=== PATIENT | female | born 1940 | race American Indian/Alaskan Native ===

== ENCOUNTER 2017-09-17 13:36 | Day surgery (SDC) | payer OTHER, MEDICARE, SELFPAY ==
--- NOTE | 2017-09-17 | PATH_ITS ---
[facility] Accession Number: [id number] . 01 Material submitted: . SIGMOID POLYP AT 20 CM . 02 Diagnosis: Sigmoid Colon At 20 CM, Polyp, Biopsy: Hyperplastic polyp. [facility]/09/18/2017 . 02 Electronically signed: . Yanni Fontanez MD, Pathologist NPI- [id number] . 01 Gross description: . Received one formalin-filled container, labeled with the patient's name, labeled sigmoid polyp at 20 cm. The specimen consists of a 0.2 cm portion of tissue, entirely submitted in one cassette. ([id number]) /FRR . 02 Pathologist provided ICD-10: K63.5 . 02 CPT . 707394 Performed at: 01 [facility] [address] [id number] MD Hunter Hampton MD Phone: [phone] Performed at: 02 [facility] [address] [place], [place] [id number] MD nAders Curtis MD Phone: [phone]
[2017-09-17 13:57] VITALS: BMI 29.8
[2017-09-17] MEDS: SODIUM CHLORIDE 0.9% 1,000 ML 200 ML IV (14:14)
[2017-09-17 14:16] VITALS: BP 156/75; PULSE 105; RESP 16; TEMP 36.9; O2SAT 97
--- NOTE | 2017-09-17 14:28 | PM.HP.1 ---
History of Present Illness Date Patient Seen: 09/17/17 Time Patient Seen: 14:29 Chief complaint: 03160 COLONOSCOPY Narrative: 76-year-old female who presents for colorectal screening. She has a personal history colon polyps. Last endoscopy was 5 or 6 years ago. She is currently having no gastrointestinal symptoms including nausea, vomiting, abdominal pain, unexplained weight loss, change in bowel habits, diarrhea, constipation, melena, hematochezia, or bright red blood per rectum. 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 Family & Social History Social History: Nonsmoker Meds Home Medications Medication Instructions Recorded Confirmed Type ibuprofen 200 mg PO Q6HR PRN #0 09/18/16 09/17/17 History multivitamin [Multiple Vitamins] 1 tab PO QDAY #0 09/18/16 09/17/17 History Allergies Allergy/AdvReac Type Severity Reaction Status Date / Time Penicillins [PENICILLINS] Allergy Unknown Rash Verified 09/17/17 13:55 Review of Systems Review of Systems All systems reviewed & are unremarkable except as noted in HPI and below Exam Vital Signs (past 8 hours): - 09/17/17 14:16 Temperature 98.4 F Pulse Rate 105 H Respiratory Rate 16 Blood Pressure 156/75 H Pulse Oximetry 97 Oxygen Delivery Method Room Air Narrative Exam Narrative: Elderly female lying comfortably in the bed in no acute distress. Alert oriented x3 Neck is supple Chest clear to auscultation bilaterally. Regular rate rhythm. Grade 2 systolic ejection murmur Abdomen soft, nondistended, nontender, no masses Extremities show no clubbing or cyanosis Objective Labs Labs: No recent laboratory or radiographic studies for review Assessment & Plan (1) Personal history of colonic polyps: Current visit: Yes Status: Acute Plan: Assessment/Plan Narrative: 76-year-old female with personal history of colon polyps. She requires colorectal surveillance for such since it has been at least 5 years since her last exam. Colonoscopy is currently recommended. Technical details of the procedure were discussed at length. Risks, benefits, alternatives were explained. Risks including but not limited to sedation, aspiration, bleeding, pain, missed lesion, incomplete examination, need for further radiographic studies, colonic perforation, need for major abdominal surgery, and all attendant risks of major surgery were discussed in detail. All questions were answered to her satisfaction, and she voiced understanding. Consent was placed on the chart. We will proceed as above.
--- NOTE | 2017-09-17 14:34 | PM.PREOP ---
Pre-operative Note Interval Note Pre-op Check: History & Physical Reviewed by Physician, Exam Performed and History & Physical exam performed today H&P completed within 30 days and has changed as indicated here:: Patient seen and examined today. History physical examination documented and on the chart. Proceed with colonoscopy as planned today for personal history colon polyps requiring surveillance. Consent placed on the chart. ASA Class (for procedural sedation): I
[2017-09-17] MEDS: MIDAZOLAM 5 MG/5 ML VIAL IV (14:52)
[2017-09-17] MEDS: fentaNYL 250 MCG/5 ML INJ IV (14:53)
--- NOTE | 2017-09-17 15:03 | PM.OP.ENDO ---
Operative Date/Time/Diagnoses - Date of procedure: 09/17/17 Time of procedure: 15:03 Pre-op diagnosis: Personal history of colon polyps Post-op diagnosis: other (Sigmoid polyp but otherwise normal colon and rectum) Procedure & Clinicians Study performed: 1. Sedation per surgeon 2. Colonoscopy with cold forceps polypectomy Same procedure as scheduled: Yes Indications: 76-year-old female with personal history of colon polyps. It has been at least 5 years since her last colonoscopy. She require surveillance for her history of polyps. Colonoscopy is once again recommended. Surgeon: Spenser Joshi Procedure Notes SCOAP/Timeout: Yes Procedure in detail: After obtaining informed consent, the patient was brought to the GI suite and placed in the left lateral decubitus position on the examination table. After placement of appropriate monitors, the patient was given incremental doses of Versed and Fentanyl until an appropriate level of sedation was achieved. A time out was held per SCOAP protocol. A digital rectal examination was performed and did not reveal any masses or obstructing lesions. The colonoscope was gently passed into the patient's anus and the entire colon navigated to the level of the cecum with minimal difficulty. Once in the cecum, the scope was withdrawn being sure to go before and beyond all mucosal folds and prominences and get an excellent examination. The findings are noted above. At the level of the rectal vault, the scope was retroflexed and the internal anal canal was examined. The scope was straightened and air aspirated from the colon. The instrument was removed from the patient's body and the procedure was concluded. The patient was allowed to awaken from sedation without difficulty and taken to the post-anesthesia care unit in good condition. Scope withdrawal time: 9:39 min Sedation minutes: 23 Findings: polyp (Sigmoid colon polyp at 20 cm) Specimen(s): none sent (Sigmoid polyp) Complications: none Recommendations: High fiber diet, Will call with biopsy results and Other recommendation (No further colonoscopy indicated pending biopsy results) Plan for aftercare: 1. Discharge to home Follow up: as needed Disposition: PACU
[2017-09-17 16:21] VITALS: BP 136/68; PULSE 104; RESP 16; TEMP 36.8; O2SAT 100
--- NOTE | 2017-09-17 16:28 | SUR.PHASEII ---
pt awake to preop .. hungry and thirsty...vss and within preop of levels.. no nausea abdomen soft.. family at bedside.. pt up with assistance and walked and dressed safely.. to caar in [place]
== END 2017-09-17 15:30 | disposition home or self-care (01) ==
PROVIDERS: Family Provider Family Medicine; PCP Family Medicine; Visit Provider Surgery
PROC: 0DJD8ZZ Inspection of Lower Intestinal Tract, Via Natural or Artificial Opening Endoscopic (ICD-10-PCS; CPT 45378; principal; 2017-09-17 15:00)
DX: Z86.010 Personal history of colon polyps (principal); D12.5 Benign neoplasm of sigmoid colon
CPT/HCPCS: 45380; J2250; J3010

== ENCOUNTER 2018-04-07 19:30 | Inpatient (IN) | payer MEDICARE, OTHER, SELFPAY ==
[2018-04-07] VITALS (10 sets, daily range): BP systolic 93–165; BP diastolic 36–105; PULSE 107–134; RESP 23–33; TEMP 36.9; O2SAT 92–98
--- NOTE | 2018-04-07 19:55 | ED.URI ---
HPI - URI/Sore Throat General Chief Complaint: Upper Respiratory Symptoms Stated Complaint: FEVER, COUGH, SHORT OF BREATH Time Seen by Provider: 04/07/18 19:46 Source: patient and family Mode of arrival: ambulatory Limitations: no limitations History of Present Illness HPI Narrative: Patient is 77-year-old female who presents with difficulty breathing. She says that she has had a productive cough and shortness of breath for about the last 2 days. She is noted to be tachycardic. She is a smoker. She denies any known history of COPD in fact all she takes is an aspirin daily. She denies any fever shakes chills. Isi family noticed that her breathing was labored. MD Complaint: fever and cough Onset (ago): day(s) (2) Duration: constant Related Data Home Medications Medication Instructions Recorded Confirmed aspirin [Aspirin Low Dose] 81 mg PO DAILY 04/07/18 04/07/18 Allergies Allergy/AdvReac Type Severity Reaction Status Date / Time Penicillins [PENICILLINS] Allergy Unknown Rash Verified 09/17/17 13:55 Review of Systems Review of Systems ROS Unobtainable: All systems reviewed & are unremarkable except as noted in HPI and below Constitutional Denies chills, Denies fever(s), Denies lethargy and Denies weakness Eyes Denies change in vision, Denies eye discharge, Denies irritation and Denies loss of vision ENT Ears, Nose, Mouth, and Throat: Denies dry mouth and Reports hearing loss (chronic) Cardiovascular Denies chest pain, Denies syncope, Reports rapid heart rate, Denies pedal edema and Reports dyspnea on exertion Respiratory Reports change in phlegm color and Reports dyspnea on exertion Gastrointestinal Gastrointestinal: Denies abdominal pain, Denies change in bowel habits, Denies diarrhea, Denies nausea and Denies vomiting Genitourinary Denies hematuria, Denies flank pain, Denies urinary incontinence and Denies urinary urgency Musculoskeletal Denies back pain, Denies muscle weakness, Denies numbness and Denies tingling Integumentary/Breasts Denies pruritus, Denies erythema, Denies rash and Denies wounds Neurologic Denies syncope, Denies loss of vision, Denies numbness, Denies tingling and Denies weakness [facility] Medical History Peripheral nerve facial nerve paralysis (Acute) Personal history of colonic polyps (Acute) Psoriasis (Acute) Urinary incontinence (Acute) Surgical History History of bilateral tubal ligation (Acute) History of colonoscopy (Acute) Social History Smoking Status: Current every day smoker Exam Initial Vital Signs Initial Vital Signs: Vital Signs Temperature 98.5 F 04/07/18 19:47 Pulse Rate 134 H 04/07/18 19:47 Respiratory Rate 28 H 04/07/18 19:47 Blood Pressure 165/87 H 04/07/18 19:47 Pulse Oximetry 95 04/07/18 19:47 Const General: cooperative and comfortable Orientation: alert, awake and oriented x3 HENMT Ears: hearing grossly abnormal bilaterally and hearing grossly impaired Face and sinus: face asymmetric (Right-sided facial droop-nerve damage from ear operation) Eyes General: appearance normal, both eyes and all related structures Chest Chest: normal inspection of the chest Resp Effort & Inspection: able to speak in complete sentences Auscultation: no rales and wheezes scattered wheezes Cardio Rate: tachycardic Rhythm: regular rhythm Heart Sounds: S1 normal and S2 normal GI Inspection: non-distended Palpation: soft, no hepatosplenomegaly, No guarding, No pulsatile mass and No tender Auscultation: normal bowel sounds Skin General: no rashes or lesions noted, No jaundice and No petechiae Neuro General: alert, oriented x3, gait normal and no focal motor deficits Speech: speech normal Extrem General: normal to inspection, full ROM, capillary refill normal and no pedal edema Course Orders Ordered: ED Orders 04/07/18 19:56 Consult to Respiratory Therapy Evaluate & Treat XR chest 1V Stat 04/07/18 20:14 B Type Natriuretic Peptide Stat Complete Blood Count AUTO DIFF Stat Comprehensive Metabolic Panel Stat Lactate (Lactic Acid) Stat Magnesium Stat Partial Thromboplastin Time Stat Procalcitonin Stat Prothrombin Time INR Stat Troponin & CK Cardiac Panel Stat 04/07/18 20:32 Blood Culture Stat 04/07/18 20:59 EKG-12 Lead Stat 04/07/18 21:16 CT angio chest PE protocol Stat 04/08/18 06:00 Consult to Discharge Planning Routine Acetaminophen (Tylenol) 650 mg PO Q6HR PRN PRN Reason: As Needed for Fever/Mild Pain Albuterol/Ipratropium (Duoneb) 3 ml INH RTQ6HR ROBERTO Sodium Chloride (Normal Saline 0.9%) 1,000 mls @ 150 mls/hr IV CONT ROBERTO Last Infusion: 04/07/18 21:00 Dose: 150 mls/hr Admin: 04/07/18 20:14 Dose: 150 mls/hr Discontinued Medications Albuterol (Ventolin) 2.5 mg INH NOW ONE Stop: 04/07/18 20:35 Last Admin: 04/07/18 20:59 Dose: 2.5 mg Albuterol/Ipratropium (Duoneb) 3 ml INH NOW ONE Stop: 04/07/18 19:56 Last Admin: 04/07/18 19:59 Dose: 3 ml Furosemide (Lasix) 40 mg IV NOW ONE Stop: 04/07/18 21:00 Last Admin: 04/07/18 21:03 Dose: 40 mg Methylprednisolone (Solu-Medrol 125 Mg Vial) 125 mg IV NOW ONE Stop: 04/07/18 19:56 Last Admin: 04/07/18 20:14 Dose: 125 mg Vital Signs - 8 hr 04/07/18 19:47 04/07/18 19:59 04/07/18 20:00 Temperature 98.5 F Pulse Rate 134 H 123 H 124 H Respiratory Rate 28 H 24 23 Blood Pressure 165/87 H Blood Pressure [Left Arm] 161/81 H Pulse Oximetry 95 96 04/07/18 20:30 04/07/18 20:59 04/07/18 21:00 Temperature Pulse Rate 130 H 130 H 132 H Respiratory Rate 25 H 24 27 H Blood Pressure Blood Pressure [Left Arm] 156/65 H 145/105 H Pulse Oximetry 93 92 93 04/07/18 22:10 04/07/18 22:30 04/07/18 23:34 Temperature Pulse Rate 126 H 125 H 116 H Respiratory Rate 26 H 33 H 27 H Blood Pressure Blood Pressure [Left Arm] 154/86 H 117/36 L 93/69 Pulse Oximetry 97 98 04/07/18 23:39 04/08/18 00:00 04/08/18 00:30 Temperature Pulse Rate 107 H 104 H 114 H Respiratory Rate 26 H 24 30 H Blood Pressure Blood Pressure [Left Arm] 137/61 143/62 H 131/63 Pulse Oximetry 96 99 95 04/08/18 01:00 Temperature Pulse Rate 113 H Respiratory Rate 25 H Blood Pressure Blood Pressure [Left Arm] 142/69 H Pulse Oximetry 95 MDM - URI/Sore Throat Lab Data Attestation: I reviewed the patient's lab results. Result diagrams: 04/07/18 20:14 04/07/18 20:14 Lab Results 04/07/18 04/07/18 04/07/18 Range/Units 20:14 20:14 20:14 WBC 6.4 (4.5-11.0) X10^3/uL RBC 3.94 L (4.0-5.2) X10^6/uL Hgb 11.4 L (12.0-16.0) g/dL Hct 35.2 L (36-46) % MCV 89.3 (80-100) fL MCH 29.0 (26-34) PG MCHC 32.5 (30-36) % RDW 14.7 (11.6-14.8) % Plt Count 173 (150-400) X10^3/uL Neut % (Auto) 61.6 (50-75) % Lymph % (Auto) 24.8 L (25-40) % [place] % (Auto) 12.2 (3-14) % Eos % (Auto) 0.7 L (2-4) % Baso % (Auto) 0.7 (0-2) % Neut # (Auto) 4000 (2378-0174) /uL Lymph # (Auto) 1600 (6525-5127) /uL [place] # (Auto) 800 (0-900) /uL Eos # (Auto) 0 (0-450) /uL Baso # (Auto) 0 (0-100) /uL PT 13.0 H (10.1-12.7) SECONDS INR 1.1 (0.9-1.3) APTT 25 L (26.4-36.2) SECONDS Sodium 138 (137-145) mmol/L Potassium 4.2 (3.4-5.1) mmol/L Chloride 103 (98-107) mmol/L Carbon Dioxide 24 (22-32) mmol/L BUN 13 (7-17) mg/dL Creatinine 0.40 L (0.52-1.04) mg/dL Estimated GFR > 60.0 (>60) mL/min BUN/Creatinine Ratio 32.5 H (6-22) Glucose 104 (80-110) mg/dL Lactate (0.7-2.1) mmol/L Calcium 9.2 (8.4-10.2) mg/dL Magnesium 1.6 (1.6-2.3) mg/dL Total Bilirubin 1.3 (0.2-1.3) mg/dL AST 39 H (14-36) IU/L ALT 41 (9-52) IU/L Alkaline Phosphatase 98 (38-126) U/L Total Creatine Kinase 516 H (30-135) U/L CK-MB (CK-2) 1.84 (<2.37) ng/mL CK-MB (CK-2) Rel Index 0.4 L (1.5-5.0) % Troponin I 0.060 H (0.01-0.034) ng/mL B-Natriuretic Peptide 1080 H (<100) Total Protein 6.9 (6.3-8.2) g/dL Albumin 4.1 (3.5-5.0) g/dL Globulin 2.8 (1.7-4.1) g/dL Albumin/Globulin Ratio 1.5 (1.0-2.8) Procalcitonin (<0.5) ng/mL 04/07/18 04/07/18 Range/Units 20:14 20:14 WBC (4.5-11.0) X10^3/uL RBC (4.0-5.2) X10^6/uL Hgb (12.0-16.0) g/dL Hct (36-46) % MCV (80-100) fL MCH (26-34) PG MCHC (30-36) % RDW (11.6-14.8) % Plt Count (150-400) X10^3/uL Neut % (Auto) (50-75) % Lymph % (Auto) (25-40) % [place] % (Auto) (3-14) % Eos % (Auto) (2-4) % Baso % (Auto) (0-2) % Neut # (Auto) (4658-6304) /uL Lymph # (Auto) (4304-4111) /uL [place] # (Auto) (0-900) /uL Eos # (Auto) (0-450) /uL Baso # (Auto) (0-100) /uL PT (10.1-12.7) SECONDS INR (0.9-1.3) APTT (26.4-36.2) SECONDS Sodium (137-145) mmol/L Potassium (3.4-5.1) mmol/L Chloride (98-107) mmol/L Carbon Dioxide (22-32) mmol/L BUN (7-17) mg/dL Creatinine (0.52-1.04) mg/dL Estimated GFR (>60) mL/min BUN/Creatinine Ratio (6-22) Glucose (80-110) mg/dL Lactate 1.1 (0.7-2.1) mmol/L Calcium (8.4-10.2) mg/dL Magnesium (1.6-2.3) mg/dL Total Bilirubin (0.2-1.3) mg/dL AST (14-36) IU/L ALT (9-52) IU/L Alkaline Phosphatase (38-126) U/L Total Creatine Kinase (30-135) U/L CK-MB (CK-2) (<2.37) ng/mL CK-MB (CK-2) Rel Index (1.5-5.0) % Troponin I (0.01-0.034) ng/mL B-Natriuretic Peptide (<100) Total Protein (6.3-8.2) g/dL Albumin (3.5-5.0) g/dL Globulin (1.7-4.1) g/dL Albumin/Globulin Ratio (1.0-2.8) Procalcitonin < 0.05 (<0.5) ng/mL Urine Dip Bedside Urine Glucose Negative Bedside Urine Bilirubin - Negative Bedside Urine Ketone - Negative Urine Specific [place] 1.015 Bedside Urine Occult Blood - Negative Bedside Urine pH 6.5 Bedside Urine Protein - Negative Bedside Urine Urobilinogen - Negative Bedside Urine Nitrite - Negative Bedside Urine Leukocytes - Negative Esterase Imaging Data CT PE: Radiologist's impression: PROCEDURE: CT ANGIO CHEST PE PROTOCOL INDICATIONS: short of breath tachycardic TECHNIQUE: After the administration of intravenous contrast, 2 mm thick sections acquired from the pulmonary apices to the posterior costophrenic angles. 3-dimensional maximum intensity projection (MIP) coronal and sagittal reformats were then acquired through the thorax. For radiation dose reduction, the following was used: automated exposure control, adjustment of mA and/or kV according to patient size. COMPARISON: [facility], CT, CT BRAIN WO CON, 10/07/2015, 17:32. FINDINGS: Image quality: Excellent. Pulmonary arteries: Pulmonary arteries are normal in size, and demonstrate no intraluminal filling defects to suggest central pulmonary embolism. Lungs and pleura: There is mild bilateral lower lobe atelectasis. No pleural effusions or pneumothorax. Central and peripheral airways are patent. There is a 1.5 cm diverticulum arising from the inferior left mainstem bronchus on axial image 28 of series 5. Mediastinum: There is left atrial enlargement. There is mild mediastinal lymphadenopathy as well as right hilar lymphadenopathy. There is moderate calcified and noncalcified plaque of the aorta and branch vessels. There is moderate calcified plaque of the coronary arteries. The aorta is nondilated. Bones and chest wall: No suspicious bony lesions. Ribs and thoracic spine appear intact throughout. There are moderate multilevel degenerative changes of the spine. Left thyroid lobe is larger than the right thyroid lobe. No axillary or supraclavicular adenopathy. Abdomen: There are multiple hypoattenuating foci within the liver, though some measure larger than 1 cm have attenuation characteristics consistent with hepatic cysts. Those that measures smaller than 1 cm are too small to fully characterize on this exam but likely represent additional hepatic cysts or hemangiomas. No intrahepatic hypoattenuating foci demonstrate arterial phase contrast-enhancement on this exam. There is 0.8 cm left renal cyst. There is 0.8 cm high attenuation focus in the gallbladder neck which may represent a gallstone or soft tissue mass. IMPRESSION: 1. No pulmonary artery intraluminal filling defects to suggest central pulmonary embolism. 2. Mild bibasilar atelectasis. 3. Mild right hilar and mediastinal lymphadenopathy, which is nonspecific and possibly reactive. 4. 0.8 cm high attenuation focus in the gallbladder neck may represent a noncalcified gallstone versus a soft tissue mass. Consider followup abdominal imaging if there is clinical concern. Dictated by: Marek Walters M.D. on 04/07/2018 at 22:35 Chest x-ray: Radiologist's impression: PROCEDURE: XR CHEST 1V INDICATIONS: short of breath TECHNIQUE: One view of the chest was acquired. COMPARISON: [facility], , CHEST 2 VIEW, 11/27/2015, 16:00. FINDINGS: Surgical changes and devices: Multiple monitor leads project over the chest. Lungs and pleura: No pleural effusions or pneumothorax. There are mild bibasilar pulmonary opacities most consistent with atelectasis. Mediastinum: The patient is rotated, resulting in exaggeration of the mediastinal and cardiac silhouettes. Within this context, the cardiac silhouette remains enlarged. Prominent air noted within the cervical esophagus/pharynx. Bones and chest wall: Mild multilevel degenerative changes of the spine. IMPRESSION: 1. Mild bibasilar pulmonary opacities most consistent with atelectasis. 2. Enlargement of the mediastinal and cardiac silhouettes, likely secondary to a combination of patient rotation and possible cardiomegaly/pericardial effusion. Attention on followup exams recommended. 3. Prominent air within the pharynx/cervical esophagus. Dictated by: Marek Walters M.D. on 04/07/2018 at 21:34 ECG Data Attestation: I personally reviewed and interpreted this ECG as follows: Prior ECG tracings: not available for review Interpretation: EKG 1.: Sinus tachycardia rate [address] changes no T-wave inversions EKG 2. Sinus tachycardia rate 138 similar to previous occasional pauses no PVCs MDM Narrative Medical decision making narrative: Patient given bronchodilators without much improvement. BNP is significantly elevated has no known history of CHF. She is persistently tachycardic with difficulty breathing. Will get CT to rule out PE. CT is negative. Patient and urinated number of times her breathing is much improved she is able to sleep. Heart rate also doing much better. Low blood pressures were recorded but found to be wrong size cuff on patient's arm. He has also been awake alert and oriented. Farhana, hospitalist updated on patient's symptoms test results. Accepts patient for admission. Discharge Plan Departure Patient Disposition: Admitted As Inpatient Clinical Impression: CHF (congestive heart failure), COPD (chronic obstructive pulmonary disease) Admit Date/Time: 04/07/18 23:02 Admit Provider: Rod Velasco
[2018-04-07] MEDS: ALBUTEROL/IPRATROPIUM 3 ML AMPUL INH (19:59)
[2018-04-07] MEDS: SODIUM CHLORIDE 0.9% 1,000 ML 150 ML IV (20:14)
[2018-04-07] MEDS: methylPREDNISolone 125 MG/2 ML VIAL IV (20:14)
[2018-04-07 20:33] LABS: Add Manual Diff / Slide Review NO; Basophils Absolute Auto 0 /uL (0-100); Basophils Percent Auto 0.7 % (0-2); Eosinophils Absolute Auto 0 /uL (0-450); Eosinophils Percent Auto 0.7 % (2-4); Hematocrit 35.2 % (36-46); Hemoglobin 11.4 g/dL (12.0-16.0); Lymphocytes Absolute Auto 1600 /uL (1100-4500); Lymphocytes Percent Auto 24.8 % (25-40); Mean Corpuscular HGB Conc 32.5 % (30-36); Mean Corpuscular Volume 89.3 fL (80-100); Monocytes Absolute Auto 800 /uL (0-900); Monocytes Percent Auto 12.2 % (3-14); Neutrophils Absolute Auto 4000 /uL (1500-7000); Neutrophils Percent Auto 61.6 % (50-75); Platelet Count 173 X10^3/uL (150-400); Red Blood Cell Count 3.94 X10^6/uL (4.0-5.2); Red Cell Distribution Width 14.7 % (11.6-14.8); White Blood Cell Count 6.4 X10^3/uL (4.5-11.0)
[2018-04-07 20:41] LABS: INR 1.1 (0.9-1.3)
[2018-04-07 20:43] LABS: PTT Partial Thromboplastin Tim 25 SECONDS (26.4-36.2)
[2018-04-07 20:46] LABS: Alanine Aminotransferase 41 IU/L (9-52); Albumin 4.1 g/dL (3.5-5.0); Albumin Globulin Ratio 1.5 (1.0-2.8); Alkaline Phosphatase 98 U/L (38-126); Aspartate Aminotransferase 39 IU/L (14-36); BUN Creatinine Ratio 32.5 (6-22); Bilirubin Total 1.3 mg/dL (0.2-1.3); Blood Urea Nitrogen 13 mg/dL (7-17); Calcium 9.2 mg/dL (8.4-10.2); Carbon Dioxide 24 mmol/L (22-32); Chloride 103 mmol/L (98-107); Creatine Kinase 516 U/L (30-135); Estimated Glomerular Filt Rate > 60.0 mL/min (>60); Globulin 2.8 g/dL (1.7-4.1); Glucose 104 mg/dL (80-110); HEMOLYSIS < 15 (0-50); Lactate (Lactic Acid) 1.1 mmol/L (0.7-2.1); Magnesium 1.6 mg/dL (1.6-2.3); Potassium 4.2 mmol/L (3.4-5.1); Sodium 138 mmol/L (137-145); Total Protein 6.9 g/dL (6.3-8.2)
--- NOTE | 2018-04-07 20:48 | PC.NURSE ---
Pt states SOB for past 2 days with productive cough. She is a smoker, denies history of COPD and takes a baby aspirin daily as only home med. Pt tachycardic 120's and does not have fever 98.6 upon arrival.
[2018-04-07 20:50] LABS: B Type Natriuretic Peptide 1080 (<100)
[2018-04-07] MEDS: ALBUTEROL 2.5 MG/3 ML NEB (ADULT) INH (20:59)
[2018-04-07 21:00] LABS: Procalcitonin < 0.05 ng/mL (<0.5)
[2018-04-07 21:01] LABS: CKMB % Relative Index 0.4 % (1.5-5.0); Creatine Kinase MB 1.84 ng/mL (<2.37)
[2018-04-07] MEDS: FUROSEMIDE 40 MG/4 ML VIAL IV (21:03)
--- NOTE | 2018-04-07 21:16 | DI.CT.S_ITS ---
PROCEDURE: CT ANGIO CHEST PE PROTOCOL INDICATIONS: short of breath tachycardic TECHNIQUE: After the administration of intravenous contrast, 2 mm thick sections acquired from the pulmonary apices to the posterior costophrenic angles. 3-dimensional maximum intensity projection (MIP) coronal and sagittal reformats were then acquired through the thorax. For radiation dose reduction, the following was used: automated exposure control, adjustment of mA and/or kV according to patient size. COMPARISON: [facility], CT, CT BRAIN WO CON, 10/07/2015, 17:32. FINDINGS: Image quality: Excellent. Pulmonary arteries: Pulmonary arteries are normal in size, and demonstrate no intraluminal filling defects to suggest central pulmonary embolism. Lungs and pleura: There is mild bilateral lower lobe atelectasis. No pleural effusions or pneumothorax. Central and peripheral airways are patent. There is a 1.5 cm diverticulum arising from the inferior left mainstem bronchus on axial image 28 of series 5. Mediastinum: There is left atrial enlargement. There is mild mediastinal lymphadenopathy as well as right hilar lymphadenopathy. There is moderate calcified and noncalcified plaque of the aorta and branch vessels. There is moderate calcified plaque of the coronary arteries. The aorta is nondilated. Bones and chest wall: No suspicious bony lesions. Ribs and thoracic spine appear intact throughout. There are moderate multilevel degenerative changes of the spine. Left thyroid lobe is larger than the right thyroid lobe. No axillary or supraclavicular adenopathy. Abdomen: There are multiple hypoattenuating foci within the liver, though some measure larger than 1 cm have attenuation characteristics consistent with hepatic cysts. Those that measures smaller than 1 cm are too small to fully characterize on this exam but likely represent additional hepatic cysts or hemangiomas. No intrahepatic hypoattenuating foci demonstrate arterial phase contrast-enhancement on this exam. There is 0.8 cm left renal cyst. There is 0.8 cm high attenuation focus in the gallbladder neck which may represent a gallstone or soft tissue mass. IMPRESSION: 1. No pulmonary artery intraluminal filling defects to suggest central pulmonary embolism. 2. Mild bibasilar atelectasis. 3. Mild right hilar and mediastinal lymphadenopathy, which is nonspecific and possibly reactive. 4. 0.8 cm high attenuation focus in the gallbladder neck may represent a noncalcified gallstone versus a soft tissue mass. Consider followup abdominal imaging if there is clinical concern. Dictated by: Marek Walters M.D. on 04/07/2018 at 22:35 Approved by: Marek Walters M.D. on 04/07/2018 at 22:54
[2018-04-08] VITALS (13 sets, daily range): BP systolic 117–148; BP diastolic 61–81; PULSE 104–128; RESP 16–30; TEMP 36.3–36.9; O2SAT 92–99; BMI 29.8
--- NOTE | 2018-04-08 | DI.US.S_ITS ---
PROCEDURE: US ABDOMEN COMPLETE INDICATIONS: RUQ pain, abnorma CT finding, concern for biliary abnormalit TECHNIQUE: Real-time scanning was performed of the abdominal and retroperitoneal organs, with image documentation. COMPARISON: None. FINDINGS: Liver: Liver is normal in size and homogeneous in echotexture. Multiple hepatic cysts are identified. Largest cyst is in the right of the liver and measures 4.9 x 4.5 cm. Largest cyst in the left lobe measures 1.8 cm in diameter. Gallbladder: The 6 mm and 8 mm nonmobile stones are noted in the gallbladder neck. The gallbladder wall is at the upper limits of normal in thickness measuring 3 mm. No pericholecystic fluid. No sonographic Chou's sign. Biliary ducts: Intrahepatic bile ducts are non-dilated. Extrahepatic bile duct caliber measures 6.0 mm. Normal is 6-7 mm or less in diameter, or 10 mm or less post-cholecystectomy. Pancreas: Visualized portions of the pancreas are sonographically normal. Tail of the pancreas is not visualized due to bowel gas and cannot be evaluated. Spleen: Spleen is normal in size and homogeneous in echotexture. Kidneys: Kidneys are normal in size and echotexture. Right kidney measures 10.1 cm long; left kidney measures 10.6 cm long. No hydronephrosis or nephrolithiasis. No solid masses. Aorta: Visualized aorta is normal in caliber at less than 3 cm. Atherosclerotic calcification is noted in the abdominal aorta. Iliacs: Proximal common iliac arteries are normal in caliber at less than 2.5 cm. IVC: Intrahepatic inferior vena cava is patent. Miscellaneous: No free abdominal fluid. IMPRESSION: 1. Cholelithiasis with gallstones lodged in the gallbladder neck and gallbladder wall at the upper limits of normal in thickness. Findings concerning for early cholecystitis. Please correlate with clinical data. 2. Hepatic cysts. Dictated by: Bhumi Brito MD, PhD on 04/08/2018 at 8:56 Approved by: Bhumi Brito MD, PhD on 04/08/2018 at 9:00
--- NOTE | 2018-04-08 01:57 | PM.HP.1 ---
History of Present Illness Date Patient Seen: 04/08/18 Time Patient Seen: 01:32 Chief complaint: FEVER, COUGH, SHORT OF BREATH Narrative: The patient is a 77-year-old female who presented to the ED on 04/07/2018 at 1947 out of concern for dyspnea. Symptoms initially noted 2 days ago, progressively worsening. Associated symptoms include chills, cough, orthopnea, chest discomfort, RUQ abdominal pain, and decrease in urine output. Symptoms are worsened with exertion and relieved with rest. Denies recent acute illness, falls, unilateral lower extremity pain or edema, palpitations, weakness, fatigue, or signs of blood loss. [place] Recently in contact with multiple people with URI symptoms. No prior known history of cardiac, pulmonary, renal disease. No history of PE or DVT. ED Work-Up / Initial Presentation VS: T 98.5*F BP 165/87 HR 134 RR 28 SpO2 95% EKG: ST w/ occasional supraventricular premature complexes, ST/T changes, moderate ST depression CXR: - Mild bibasilar pulmonary opacities most consistent with atelectasis. - Enlargement of the mediastinal and cardiac silhouettes, likely secondary to a combination of patient rotation and possible cardiomegaly/pericardial effusion. Attention on followup exams recommended. - Prominent air within the pharynx/cervical esophagus. CTA Chest No PE. Mild bibasilar atelectasis. Mild right hilar and mediastinal lymphadenopathy, which is nonspecific and possibly reactive. A 0.8 cm high attenuation focus in the gallbladder neck may represent a non-calcified gallstone versus a soft tissue mass. Consider followup abdominal imaging if there is clinical concern. Labs: WBC 6.4 Hgb 11.4 Plt 173 NA 138 K 4.2 Cl 103 Ca 9.2 Mg 1.6 CO2 24 Glu 104 sCr 0.40 GFR > 60 BUN:Cr 32.5 T. 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) PSH: b/l tubal ligation, colonoscopy, left ear surgery FHx: mother / father - no known medical history; sister (breast cancer), sister (cervical cancer), son (end stage heart failure) Patient History Medical History Peripheral nerve facial nerve paralysis (Acute) Personal history of colonic polyps (Acute) Psoriasis (Acute) Urinary incontinence (Acute) Surgical History History of bilateral tubal ligation (Acute) History of colonoscopy (Acute) Family & Social History Family History: Reviewed 04/08/18 by JESSY Agosto Safety & Behavioral: Feels Safe in Current Yes Environment Tobacco & Substance use: Smoking Status Current every day smoker, 1ppd at least for 20 yrs alcohol intake frequency other Substance Use Type does not use Meds Home Medications Medication Instructions Recorded Confirmed Type aspirin [Aspirin Low Dose] 81 mg PO DAILY 04/07/18 04/07/18 History Allergies Allergy/AdvReac Type Severity Reaction Status Date / Time Penicillins [PENICILLINS] Allergy Unknown Rash Verified 09/17/17 13:55 Review of Systems Review of Systems All systems reviewed & are unremarkable except as noted in HPI and below Exam Vital Signs (past 8 hours): - 04/07/18 19:47 04/07/18 19:59 04/07/18 20:00 Temperature 98.5 F Pulse Rate 134 H 123 H 124 H Respiratory Rate 28 H 24 23 Blood Pressure 165/87 H Blood Pressure [Left Arm] 161/81 H Pulse Oximetry 95 96 04/07/18 20:30 04/07/18 20:59 04/07/18 21:00 Temperature Pulse Rate 130 H 130 H 132 H Respiratory Rate 25 H 24 27 H Blood Pressure Blood Pressure [Left Arm] 156/65 H 145/105 H Pulse Oximetry 93 92 93 04/07/18 22:10 04/07/18 22:30 04/07/18 23:34 Temperature Pulse Rate 126 H 125 H 116 H Respiratory Rate 26 H 33 H 27 H Blood Pressure Blood Pressure [Left Arm] 154/86 H 117/36 L 93/69 Pulse Oximetry 97 98 04/07/18 23:39 04/08/18 00:00 04/08/18 00:30 Temperature Pulse Rate 107 H 104 H 114 H Respiratory Rate 26 H 24 30 H Blood Pressure Blood Pressure [Left Arm] 137/61 143/62 H 131/63 Pulse Oximetry 96 99 95 04/08/18 01:00 Temperature Pulse Rate 113 H Respiratory Rate 25 H Blood Pressure Blood Pressure [Left Arm] 142/69 H Pulse Oximetry 95 Oxygen Delivery Method Room Air Narrative Exam Narrative: Constitutional: NAD, seen in ED Neurologic: AOx 2-3, forgetful, left facial palsy Head: NC, AT Eyes: PERRL, EOMI, no scleral icterus Ears: external ears normal, very hard fo hearing Nose: external nose normal, no rhinorrhea or epistaxis Throat: MMM, oropharynx w/o exudate, missing teeth Neck: no masses, lymphadenopathy, or JVD Chest / Respiratory: right lobe diminished, left crackles, no dyspnea or tachypnea, unlabored respiratory effort Heart / CV: S1S2, S3; ectopic beats noted Abdomen / GI: soft, RUQ tenderness, no distention, hypoactive BS : suprapubic tenderness, R-CVA tenderness Peripheral / Vascular: warm to touch, DP and PT pulses palpable, no edema Musc: full ROM of upper and lower extremities, adequate muscle tone and bulk Skin: no ecchymosis or suspicious lesions / ulcers; left lateral peacock - healing psoriatic lesion Objective Labs Result Diagrams: 04/07/18 20:14 04/07/18 20:14 Labs: Laboratory Results - last 24 hr 04/07/18 04/07/18 04/07/18 20:14 20:14 20:14 WBC 6.4 RBC 3.94 L Hgb 11.4 L Hct 35.2 L MCV 89.3 MCH 29.0 MCHC 32.5 RDW 14.7 Plt Count 173 Neut % (Auto) 61.6 Lymph % (Auto) 24.8 L Sunflower % (Auto) 12.2 Eos % (Auto) 0.7 L Baso % (Auto) 0.7 Neut # (Auto) 4000 Lymph # (Auto) 1600 Sunflower # (Auto) 800 Eos # (Auto) 0 Baso # (Auto) 0 PT 13.0 H INR 1.1 APTT 25 L Sodium 138 Potassium 4.2 Chloride 103 Carbon Dioxide 24 BUN 13 Creatinine 0.40 L Estimated GFR > 60.0 BUN/Creatinine Ratio 32.5 H Glucose 104 Lactate Calcium 9.2 Magnesium 1.6 Total Bilirubin 1.3 AST 39 H ALT 41 Alkaline Phosphatase 98 Total Creatine Kinase 516 H CK-MB (CK-2) 1.84 CK-MB (CK-2) Rel Index 0.4 L Troponin I 0.060 H B-Natriuretic Peptide 1080 H Total Protein 6.9 Albumin 4.1 Globulin 2.8 Albumin/Globulin Ratio 1.5 Procalcitonin 04/07/18 04/07/18 20:14 20:14 WBC RBC Hgb Hct MCV MCH MCHC RDW Plt Count Neut % (Auto) Lymph % (Auto) Sunflower % (Auto) Eos % (Auto) Baso % (Auto) Neut # (Auto) Lymph # (Auto) Sunflower # (Auto) Eos # (Auto) Baso # (Auto) PT INR APTT Sodium Potassium Chloride Carbon Dioxide BUN Creatinine Estimated GFR BUN/Creatinine Ratio Glucose Lactate 1.1 Calcium Magnesium Total Bilirubin AST ALT Alkaline Phosphatase Total Creatine Kinase CK-MB (CK-2) CK-MB (CK-2) Rel Index Troponin I B-Natriuretic Peptide Total Protein Albumin Globulin Albumin/Globulin Ratio Procalcitonin < 0.05 Assessment & Plan Plan: Assessment/Plan Narrative: Acute congestive heart failure - Echo - Bumex 0.5 Q8H x24, then evaluate need for further diuresis / transition to PO regimen - Daily weight, strict I/O - Risk Stratify: FLP, A1C - Resume ASA 81 QD Acute COPD exacerbation No prior, formal dx of COPD. Lifelong smoker. Likely an acute on chronic exacerbation. Cough w/ purulence and worsening dyspnea - Consult pulm, eval / treat - Duo-Neb Tx Q6H - Received prednisone 125 mg in ED. Will hold off on further steroid doses. - Supplemental O2 - Azithromycin PO 500 mg daily x3 days RUQ abdominal pain Incidental finding on CTA chest of a 0.8 cm high attenuation focus in the gallbladder neck may represent a non-calcified gallstone versus a soft tissue mass. - U/S abdomen - Supportive care NSTEMI Likely secondary to demand ischemia - Tele monitoring - Trend Trop Hypomagnesemia - Replete magnesium Code status discussed with patient. Patient wishes to be full code. Has a health directive. DPOA is daughter.
--- NOTE | 2018-04-08 02:34 | DI.ECHO.S_ITS ---
[facility]---------+ [facility] +---------+ : : [address] : : : : [id number] : : : : Phone: [phone]+ Echocardiogram Report + + :Name: MARIO BONDS Study Date: 04/08/2018 Height: 62 in : :[facility] Weight: 158 lb : : Gender: Female BSA: 1.7 m2 : :: 1940 Age: 77 yrs BP: 138/61 mmHg: :Reason For Study: Dyspnea : :Ordering Physician: Jagjit : :Hospitalist Performed By: Heidy Winters : :Referring: WILFRID LOGAN : + + Interpretation Summary The ejection fraction is estimated to be 50-55%. The left atrium is severely dilated. There is mild mitral regurgitation. There is trace aortic regurgitation. There is mild tricuspid regurgitation. The right ventricular systolic pressure is estimated to be at least 46 mmHg based on an estimated right atrial pressure of 3 mm Hg. The ascending aorta is mildly enlarged. Procedure: A two-dimensional transthoracic echocardiogram with color flow and Doppler was performed. The study quality was technically good. There is no prior echocardiogram noted for this patient. The patient was in sinus tachycardia with heart rates between 107-127 bpm during the exam. Left Ventricle: The left ventricle is normal in size. Left ventricular wall thickness is normal. There is no ventricular septal defect visualized. The ejection fraction is estimated to be 50-55%. There are no focal wall motion abnormalities. Right Ventricle: The right ventricle is normal in size and function. Atria: The left atrium is severely dilated. Chiari network (normal variant) is noted. Right atrial size is normal. There is no Doppler evidence for an interatrial shunt. Mitral Valve: There is mild mitral annular calcification. The mitral valve leaflets appear mildly thickened, but open well. There is mild mitral regurgitation. Aortic Valve: The aortic valve is trileaflet. The aortic valve opens well. There is trace aortic regurgitation. Tricuspid Valve: The tricuspid valve leaflets are thin and pliable. There is mild tricuspid regurgitation. The right ventricular systolic pressure is estimated to be at least 46 mmHg based on an estimated right atrial pressure of 3 mm Hg. Pulmonic Valve: The pulmonic valve is not well visualized. There is a trace or physiologic amount of pulmonic regurgitation. Great Vessels: The aortic root is normal size. The ascending aorta is mildly enlarged. The aortic arch is normal in size. The IVC is of normal diameter and collapses greater than 50% with a sniff. This suggests a low right atrial pressure of 3 mm Hg. Pericardium/ Pleura There is no pericardial effusion. MMode/2D Measurements & Calculations LVIDd: 5.4 cm LVOT diam: 2.1 cm LVIDs: 4.6 cm Ao root diam: 2.9 cm FS: 15.6 % Aortic Jxn: 2.6 cm EPSS: 0.68 cm asc Aorta Diam: 3.6 cm IVSd: 1.0 cm Ao Arch Diam (Prox Trans): 2.8 cm LVPWd: 0.88 cm LV metz. diameter/BSA (cm/m^2): 3.1 LV sys. diameter/BSA (cm/m^2): 2.7 LA A2 area: 26.6 cm2 RA long axis: 5.0 cm LA A4 area: 27.8 cm2 RA area: 15.5 cm2 LA length (vol): 6.0 cm RA vol: 41.2 ml LA vol: 105.2 ml RA : 23.8 ml/m2 LA vol index: 60.8 ml/m2 IVC diam: 1.7 cm RVD1 (basal): 3.9 cm TAPSE: 2.4 cm Doppler Measurements & Calculations Ao V2 max: 192.5 cm/sec LVOT Max Wilson: 109.3 cm/sec Ao V2 mean: 130.3 cm/sec LV V1 max P.8 mmHg Ao max P.8 mmHg LV V1 VTI: 17.9 cm Ao mean P.8 mmHg WALDO(I,D): 2.2 cm2 Ao V2 VTI: 27.5 cm WALDO(V,D): 1.9 cm2 sev ratio: 0.65 WALDO indexed to BSA (cm^2/m^2): 1.3 MV E max wilson: 107.5 cm/sec TR max wilson: 325.8 cm/sec MV A max wilson: 108.7 cm/sec TR max P.5 mmHg MV E/A: 0.99 PA V2 max: 128.9 cm/sec Med Peak E' Wilson: 5.6 cm/sec PA V2 mean: 79.8 cm/sec E/E' med: 19.3 PA mean P.1 mmHg Lat Peak E' Wilson: 8.3 cm/sec PA Accel Time: 0.06 sec E/E' lat: 12.9 E/e' average: 16.1 MV dec time: 0.13 sec MV P1/2t: 37.4 msec MV 2t max wilson: 107.4 cm/sec SV(LVOT): 61.1 ml MVA(2t): 5.9 cm2 Reading Physician:08:14 AM
[2018-04-08] MEDS: MAGNESIUM SULFATE 2 GM/50 ML PIGGYBACK IV (03:39)
[2018-04-08 04:16] LABS: Alanine Aminotransferase 36 IU/L (9-52); Albumin Globulin Ratio 1.4 (1.0-2.8); Alkaline Phosphatase 101 U/L (38-126); Aspartate Aminotransferase 38 IU/L (14-36); BUN Creatinine Ratio 37.5 (6-22); Bilirubin Total 1.3 mg/dL (0.2-1.3); Blood Urea Nitrogen 15 mg/dL (7-17); Calcium 9.3 mg/dL (8.4-10.2); Carbon Dioxide 25 mmol/L (22-32); Chloride 104 mmol/L (98-107); Cholesterol 114 mg/dL (140-199); Estimated Glomerular Filt Rate > 60.0 mL/min (>60); Globulin 2.8 g/dL (1.7-4.1); Glucose 171 mg/dL (80-110); HDL Cholesterol 45 mg/dL (40-60); HEMOLYSIS < 15 (0-50); LDL Cholesterol Calculated 60 mg/dL (<100); Potassium 3.8 mmol/L (3.4-5.1); Sodium 139 mmol/L (137-145); Total Protein 6.8 g/dL (6.3-8.2); Triglycerides 47 mg/dL (35-150)
[2018-04-08 04:20] LABS: Hemoglobin A1C% w Est Avg Glu 5.3 % (4.0-6.0)
[2018-04-08 04:28] LABS: Troponin I 0.047 ng/mL (0.01-0.034)
[2018-04-08 04:38] LABS: WBC Urine None Seen (0-5/HPF)
[2018-04-08 04:49] LABS: Appearance Urine UA CLEAR; Bilirubin Urine UA NEGATIVE (NEGATIVE); Color Urine UA YELLOW; Glucose Urine UA NEGATIVE (Negative); Ketones Urine UA NEGATIVE (NEGATIVE); Leukocyte Esterase Urine UA NEGATIVE (NEGATIVE); Nitrite Urine UA NEGATIVE (Negative); Occult Blood Urine UA TRACE-INTACT (Negative); Protein Urine UA NEGATIVE (Negative); Specific Gravity Urine UA <=1.005 (1.000-1.035); Urobilinogen Urine UA 0.2 E.U./dL (0.2); pH Urine UA 6.5 (4.5-8.0)
[2018-04-08 04:52] LABS: Bacteria Urine Many (>30); Culture Indicated Urine Cult Not Indicated; RBC Urine 1-5/HPF (0-5/HPF); Squamous Epithelial Cell Urine 0-1 /HPF
[2018-04-08] MEDS: BUMETANIDE 1 MG/4 ML VIAL 0.5 MG IV ×2 (05:01→14:46)
--- NOTE | 2018-04-08 06:52 | PC.NURSE ---
0210: pt A&Ox3. LS: dim,fine crackles at bases. 98%RA. continuos pulse ox. tele: ST, PAC's 115bpm. denied chest pain. btx4, denied n/v. SBA to the BR. pt urinating ok. call light in reach. bed alarm active. SL to L.AC.
[2018-04-08 07:11] LABS: Troponin I 0.035 ng/mL (0.01-0.034)
[2018-04-08] MEDS: ALBUTEROL/IPRATROPIUM 3 ML AMPUL INH ×4 (08:58→23:33)
[2018-04-08] MEDS: AZITHROMYCIN 250 MG TABLET 500 MG PO (09:43)
[2018-04-08] MEDS: ASPIRIN EC 81 MG TABLET PO (09:43)
[2018-04-08] MEDS: HEPARIN 5,000 UNIT/ML VIAL 5000 UNIT SUBCUT ×2 (09:43→22:32)
--- NOTE | 2018-04-08 12:57 | CM.DANOTE ---
Discharge Planning/Care Management CM Discharge Assessment Start: 04/08/18 12:49 Freq: Status: Active Protocol: Document 04/08/18 12:49 (Rec: 04/08/18 12:57 [id number]) Discharge Planning Assessment Assigned [employer] Tier Off PANCHITO Howell DPOA/Assigned Designee Name Daughter Contact Information Melissa [phone] Advance Directives? No History Provided By Patient Medical Record Has Patient been admitted in last 30 No days? Prior Living Arrangements House Household Members family Comment lives with two adult sons and grandchildren in [facility]. Daughter resides in [facility] [place] . Type of transporation used prior to Drives own vehicle admit Independent with ADL's Yes Is patient alert and oriented? Yes: NOATAK Needs Assistance With Meal Prep Home Chores / Shopping Caregiver for Another No Comment Patient's preference is to return home with supportive family. Discharge Plan Home Transportation Arrangement Morelia Torres to provide. Additional Comment Patient is currently admitted for Acute congestive heart failure, Acute COPD exacerbation, abd pain and NSTEMI. PCP is [facility]. Met with patient: patient is NOATAK, but able to hear well out of her left ear. Patient is currently pending echo and RT eval. Discharge needs are unclear at this time. Patient does not anticipate any discharge needs as she feels her daughter Alfonso will be able to assist along with her two sons. Whiteboard Updated in Patient Room with Yes name and ext. # of [employer] Tier Off Review Status In Process Please Provide Date Initial DC 04/08/18 Assessment Was Performed Next Review Type Continued Stay Review
--- NOTE | 2018-04-08 13:39 | PC.NURSE ---
pt. up to shower per NUT THREADER. Well tolerated, no SOB. no c/o pain or discomfort.
--- NOTE | 2018-04-08 14:56 | PC.NURSE ---
AM shift Pt denies pain to ABD or SOB. Tele in place, ST at times. No CP.
[2018-04-08 20:14] LABS: Add Manual Diff / Slide Review NO; Basophils Absolute Auto 0 /uL (0-100); Basophils Percent Auto 0.4 % (0-2); Eosinophils Absolute Auto 0 /uL (0-450); Eosinophils Percent Auto 0.2 % (2-4); Hematocrit 34.3 % (36-46); Hemoglobin 11.3 g/dL (12.0-16.0); Lymphocytes Absolute Auto 1400 /uL (1100-4500); Mean Corpuscular HGB Conc 32.9 % (30-36); Mean Corpuscular Hemoglobin 29.1 PG (26-34); Mean Corpuscular Volume 88.4 fL (80-100); Monocytes Absolute Auto 900 /uL (0-900); Monocytes Percent Auto 12.8 % (3-14); Neutrophils Absolute Auto 4800 /uL (1500-7000); Neutrophils Percent Auto 66.6 % (50-75); Platelet Count 173 X10^3/uL (150-400); Red Blood Cell Count 3.87 X10^6/uL (4.0-5.2); Red Cell Distribution Width 14.4 % (11.6-14.8); White Blood Cell Count 7.2 X10^3/uL (4.5-11.0)
[2018-04-08 20:24] LABS: Alanine Aminotransferase 37 IU/L (9-52); Albumin 3.8 g/dL (3.5-5.0); Albumin Globulin Ratio 1.5 (1.0-2.8); Alkaline Phosphatase 103 U/L (38-126); Aspartate Aminotransferase 34 IU/L (14-36); Bilirubin Total 0.9 mg/dL (0.2-1.3); Blood Urea Nitrogen 24 mg/dL (7-17); Calcium 8.7 mg/dL (8.4-10.2); Carbon Dioxide 27 mmol/L (22-32); Chloride 99 mmol/L (98-107); Estimated Glomerular Filt Rate > 60.0 mL/min (>60); Globulin 2.6 g/dL (1.7-4.1); Glucose 107 mg/dL (80-110); HEMOLYSIS < 15 (0-50); Lactate (Lactic Acid) 1.1 mmol/L (0.7-2.1); Potassium 3.8 mmol/L (3.4-5.1); Sodium 136 mmol/L (137-145); Total Protein 6.4 g/dL (6.3-8.2)
[2018-04-08 22:40] LABS: Adenovirus Not Detected (Not Detect); Coronavirus 229E Not Detected (Not Detect); Coronavirus HKU1 Not Detected (Not Detect); Coronavirus NL 63 Not Detected (Not Detect); Coronavirus OC43 Not Detected (Not Detect); Human Metapneumovirus Not Detected (Not Detect); Human Rhinovirus/Enterovirus Not Detected (Not Detect); Influenza A Not Detected (Not Detect); Influenza B Not Detected (Not Detect); Parainfluenza Virus 1 Not Detected (Not Detect); Parainfluenza Virus 2 Not Detected (Not Detect); Parainfluenza Virus 3 Not Detected (Not Detect); Parainfluenza Virus 4 Not Detected (Not Detect); Respiratory Syncytial Virus Detected (Not Detect)
[2018-04-08 22:41] LABS: Bordetella pertussis Not Detected (Not Detect); Chlamydophila pneumoniae Not Detected (Not Detect); Mycoplasma pneumoniae Not Detected (Not Detect)
[2018-04-08] MEDS: metroNIDAZOLE 500 MG/100 ML PIGGYBACK 100 MG IV (23:33)
[2018-04-08] MEDS: POTASSIUM CHLORIDE 20 MEQ TAB 40 MEQ PO (23:41)
[2018-04-08] MEDS: predniSONE 20 MG TABLET 40 MG PO (23:52)
[2018-04-09] VITALS (11 sets, daily range): BP systolic 136–152; BP diastolic 56–84; PULSE 105–130; RESP 18–20; TEMP 36.4–37.3; O2SAT 92–98
[2018-04-09] MEDS: levoFLOXacin 750 MG/150 ML PIGGYBACK 100 MG IV ×2 (00:19→21:36)
[2018-04-09] MEDS: METOPROLOL TARTRATE 5 MG/5 ML INJ IV ×3 (00:24→18:55)
[2018-04-09 00:34] LABS: B Type Natriuretic Peptide 845 (<100)
[2018-04-09] MEDS: SODIUM CHLORIDE 0.9% 500 ML 250 ML IV (01:08)
--- NOTE | 2018-04-09 05:34 | PM.EVENT ---
Overnight events Progressively tachycardic earlier in the night with HR 120-140, asymtomatic Labs done K borderline, replaced Received respiratory tx and a 40 mg prednisone Holding Bumex Dose Viral Panel + RSA Received 250 ml NS bolus Received metoprolol 5 mg IV x1 Patient tolerated intervention, improved, heart rate maintained in the 110s through the night
[2018-04-09] MEDS: metroNIDAZOLE 500 MG/100 ML PIGGYBACK 100 MG IV ×3 (05:53→20:28)
[2018-04-09] MEDS: ALBUTEROL/IPRATROPIUM 3 ML AMPUL INH ×3 (06:08→15:00)
--- NOTE | 2018-04-09 06:28 | P.PN_ITS ---
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 Overnight: The patient became progressively tachycardic with HR 120-140, asymtomatic. Potassium was borderline low and repleted, she received a respiratory treatment and prednisone 40 mg x1, Bumex was held and a 250 mL NS bolus was given, and she received metoprolol 5 mg IV x1 with improved heart rate in the 110's. Today the patient is resting in bed comfortably. She denies headache, shortness of breath, chest pain, abdominal pain, nausea, vomiting, fever, chills, dysuria , diarrhea or constipation. She reports her breathing has improved. She is voiding and eliminating without difficulty. She is up ambulating without assistance. Overnight events Progressively tachycardic earlier in the night with HR 120-140, asymtomatic Labs done K borderline, replaced Received respiratory tx and a 40 mg prednisone Holding Bumex Dose Viral Panel + RSA Received 250 ml NS bolus Received metoprolol 5 mg IV x1 Patient tolerated intervention, improved, heart rate maintained in the 110s through the night Signed By:<Electronically signed by Rod Velasco> 04/09/18 0538 Exam Vital Signs (past 8 hours): - 04/08/18 23:33 04/09/18 00:00 04/09/18 00:32 Temperature 99.2 F Pulse Rate 128 H 130 H Respiratory Rate 20 18 Blood Pressure 152/84 H 145/74 H Pulse Oximetry 96 94 04/09/18 01:41 04/09/18 06:08 Temperature Pulse Rate 122 H 115 H Respiratory Rate 20 Blood Pressure Pulse Oximetry 92 Fraction of Inspired Oxygen 21 Oxygen Delivery Method Room Air Oxygen Flow Rate 0 Narrative Exam Narrative: General: Elderly female sitting in bed and in no acute distress, thin, frail, appears older than stated age, appropriately interactive. HEENT: Normocephalic, atraumatic. External ears without defect. Pupils equal, round, and reactive to light. Anicteric sclerae, moist conjunctivae, and no lid lag. Neck: Supple with full range of motion. No lymphadenopathy or thyromegaly. Cardiovascular: Regular rhythm, mildly tachycardic, without murmurs, rubs, or gallops appreciated Pulmonary: Clear to auscultation bilaterally without crackles, wheezes, or rhonchi. Normal respiratory effort with no use of accessory muscles. Abdomen: Soft, bowel sounds present, nontender, nondistended. No hepatosplenomegaly or masses appreciated. Extremities: No clubbing, cyanosis, or edema. Skin: Normal temperature, turgor, and texture; no rash, ulcers, or subcutaneous nodules appreciated. Neurological: Cranial nerves grossly intact. Psychiatric: Normal mood and affect. Alert and oriented to person, place, and time. Objective Labs Result Diagrams: 04/09/18 07:00 04/09/18 07:00 Labs: Laboratory Results - last 24 hr 04/08/18 04/08/18 04/08/18 06:30 20:08 20:08 WBC 7.2 RBC 3.87 L Hgb 11.3 L Hct 34.3 L MCV 88.4 MCH 29.1 MCHC 32.9 RDW 14.4 Plt Count 173 Neut % (Auto) 66.6 Lymph % (Auto) 20.0 L [place] % (Auto) 12.8 Eos % (Auto) 0.2 L Baso % (Auto) 0.4 Neut # (Auto) 4800 Lymph # (Auto) 1400 [place] # (Auto) 900 Eos # (Auto) 0 Baso # (Auto) 0 Sodium 136 L Potassium 3.8 Chloride 99 Carbon Dioxide 27 BUN 24 H Creatinine 0.80 Estimated GFR > 60.0 BUN/Creatinine Ratio 30.0 H Glucose 107 Lactate Calcium 8.7 Magnesium Total Bilirubin 0.9 AST 34 ALT 37 Alkaline Phosphatase 103 Troponin I 0.035 H B-Natriuretic Peptide Total Protein 6.4 Albumin 3.8 Globulin 2.6 Albumin/Globulin Ratio 1.5 Chlamy pneumoniae PCR Adenovirus (PCR) B.parapertussis DNA PCR Coronavirus OC43 (PCR) Coronavirus HKU1 (PCR) Coronavirus 229E (PCR) Coronavirus NL63 (PCR) Human Metapneumovir PCR Influenza Type A (PCR) Influenza Type B (PCR) M. pneumoniae (PCR) Parainfluenza 1 (PCR) Parainfluenza 2 (PCR) Parainfluenza 3 (PCR) Parainfluenza 4 (PCR) RSV (PCR) Entero/Rhino (PCR) 04/08/18 04/08/18 04/08/18 20:08 20:08 20:08 WBC RBC Hgb Hct MCV MCH MCHC RDW Plt Count Neut % (Auto) Lymph % (Auto) [place] % (Auto) Eos % (Auto) Baso % (Auto) Neut # (Auto) Lymph # (Auto) [place] # (Auto) Eos # (Auto) Baso # (Auto) Sodium Potassium Chloride Carbon Dioxide BUN Creatinine Estimated GFR BUN/Creatinine Ratio Glucose Lactate 1.1 Calcium Magnesium 2.0 Total Bilirubin AST ALT Alkaline Phosphatase Troponin I B-Natriuretic Peptide 845 H Total Protein Albumin Globulin Albumin/Globulin Ratio Chlamy pneumoniae PCR Adenovirus (PCR) B.parapertussis DNA PCR Coronavirus OC43 (PCR) Coronavirus HKU1 (PCR) Coronavirus 229E (PCR) Coronavirus NL63 (PCR) Human Metapneumovir PCR Influenza Type A (PCR) Influenza Type B (PCR) M. pneumoniae (PCR) Parainfluenza 1 (PCR) Parainfluenza 2 (PCR) Parainfluenza 3 (PCR) Parainfluenza 4 (PCR) RSV (PCR) Entero/Rhino (PCR) 04/08/18 21:10 WBC RBC Hgb Hct MCV MCH MCHC RDW Plt Count Neut % (Auto) Lymph % (Auto) [place] % (Auto) Eos % (Auto) Baso % (Auto) Neut # (Auto) Lymph # (Auto) [place] # (Auto) Eos # (Auto) Baso # (Auto) Sodium Potassium Chloride Carbon Dioxide BUN Creatinine Estimated GFR BUN/Creatinine Ratio Glucose Lactate Calcium Magnesium Total Bilirubin AST ALT Alkaline Phosphatase Troponin I B-Natriuretic Peptide Total Protein Albumin Globulin Albumin/Globulin Ratio Chlamy pneumoniae PCR Not detected Adenovirus (PCR) Not detected B.parapertussis DNA PCR Not detected Coronavirus OC43 (PCR) Not detected Coronavirus HKU1 (PCR) Not detected Coronavirus 229E (PCR) Not detected Coronavirus NL63 (PCR) Not detected Human Metapneumovir PCR Not detected Influenza Type A (PCR) Not detected Influenza Type B (PCR) Not detected M. 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 1. Acute RSV community-acquired pneumonia, present on admission. Active. -Patient presented with shortness of breath, chills, cough, orthopnea, chest discomfort, RUQ abdominal pain, and decrease in urine output. . -Viral respiratory PCR positive for RSV. -Blood cultures x2 have no growth to date. -Ordered respiratory therapy evaluation and treatment. -Ordered levalbuterol as needed for shortness of breath to avoid worsening tachycardia. -Ordered Tessalon Perles 100 mg 3 times daily as needed for cough and guaifenesin to help with secretion clearance. 2. Acute COPD exacerbation, present on admission. Active. -Patient has no prior formal diagnosis of COPD. However, she is a lifelong smoker and meets criteria for COPD exacerbation. -Productive cough with purulent sputum and worsening shortness of breath. -Ordered respiratory therapy evaluation and treatment as above. -Ordered albuterol nebs every 2 hr as needed. Not wheezing much. -Ordered Tessalon Perles 100 mg 3 times daily as needed for cough and guaifenesin to help with secretion clearance. -Received methylprednisolone 125 mg IV x1 in the ED. Started on prednisone 40 mg daily x5 days. -Started on azithromycin 500 mg daily. Switch to levofloxacin 750 mg daily for possible cholecystitis as below. 3. Ruled out congestive heart failure, present on admission. Active. -Echocardiogram demonstrated preserved left ventricular and right ventricular systolic function. No diastolic dysfunction. Mild valvular disease. Pulmonary hypertension noted with RVSP 46 mmHg likely secondary to COPD. -Started on Bumex 0.5 Q8H for 24 hr. Held on further diuresis as patient appears euvolemic/slightly dry. -Continue strict I&O and daily weights. -Risk Stratify: Lipid panel within normal limits and Hemoglobin A1c normal at 5.3%. -Continue aspirin 81 mg daily. 4. Acute right upper quadrant pain, present on admission. Resolved. -Incidental finding on CTA chest of a 0.8 cm high attenuation focus in the gallbladder neck may represent a non-calcified gallstone versus a soft tissue mass. -Ultrasound of abdomen demonstrated cholelithiasis with gallstones lodged in the gallbladder neck and gallbladder wall at the upper limits of normal in thickness. Findings concerning for early cholecystitis. -General surgery consultation was ordered and pending. We appreciate their time recommendations. 5. Elevated troponin, present on admission. Resolved. -Likely secondary to demand ischemia. Does not represent NSTEMI. -Initial troponin elevated at 0.060. trended serial troponin x3 and trending down. No need to continue to trend. -Continue to monitor closely on telemetry. 6. Acute hypomagnesemia, present on admission. Active. -Ordered magnesium sulfate 2 g IV x1. Replete magnesium as necessary. -Monitor magnesium level daily. Disposition: Patient likely to discharge in 1-2 days depending upon improvement in shortness of breath and treatment of COPD.
[2018-04-09] MEDS: SODIUM CHLORIDE 0.9% 1,000 ML 1000 ML IV (06:58)
[2018-04-09 07:41] LABS: Add Manual Diff / Slide Review NO; Basophils Absolute Auto 0 /uL (0-100); Basophils Percent Auto 0.2 % (0-2); Eosinophils Absolute Auto 0 /uL (0-450); Hematocrit 34.6 % (36-46); Hemoglobin 11.3 g/dL (12.0-16.0); Lymphocytes Absolute Auto 400 /uL (1100-4500); Lymphocytes Percent Auto 9.8 % (25-40); Mean Corpuscular HGB Conc 32.7 % (30-36); Mean Corpuscular Volume 88.7 fL (80-100); Monocytes Absolute Auto 100 /uL (0-900); Monocytes Percent Auto 2.2 % (3-14); Neutrophils Absolute Auto 3800 /uL (1500-7000); Neutrophils Percent Auto 87.8 % (50-75); Platelet Count 174 X10^3/uL (150-400); Red Cell Distribution Width 14.5 % (11.6-14.8); White Blood Cell Count 4.3 X10^3/uL (4.5-11.0)
[2018-04-09 07:47] LABS: BUN Creatinine Ratio 41.7 (6-22); Blood Urea Nitrogen 25 mg/dL (7-17); Calcium 8.9 mg/dL (8.4-10.2); Carbon Dioxide 24 mmol/L (22-32); Chloride 109 mmol/L (98-107); Estimated Glomerular Filt Rate > 60.0 mL/min (>60); Glucose 173 mg/dL (80-110); HEMOLYSIS < 15 (0-50); Potassium 4.3 mmol/L (3.4-5.1); Sodium 141 mmol/L (137-145)
[2018-04-09] MEDS: guaiFENesin ER 600 MG TAB 1200 MG PO ×2 (08:12→20:28)
[2018-04-09] MEDS: HEPARIN 5,000 UNIT/ML VIAL 5000 UNIT SUBCUT ×2 (08:13→20:28)
[2018-04-09] MEDS: ASPIRIN EC 81 MG TABLET PO (08:13)
[2018-04-09] MEDS: predniSONE 20 MG TABLET 40 MG PO (08:14)
[2018-04-09 08:17] LABS: Procalcitonin < 0.05 ng/mL (<0.5)
[2018-04-09] MEDS: SODIUM CHLORIDE 0.9% 1,000 ML 100 ML IV (11:15)
--- NOTE | 2018-04-09 12:04 | PC.NURSE ---
Addendum entered by Rebecca Lira R.N. 04/09/18 13:52: CARDIAC - per ICU, pt hr elev 120's - up to 126, ST, spoke to and new order rec'd, given now dose 5mg iv metoprolol, pt did feel warm earlier, rechecked and afebrile, removed extra blanket, cool cloth given. Original Note: AM NOTE - awake, up to dangle position for breakfast, bs dim, congested dry, non productive cough at times, ra 96%, states feeling better, hr tachy 116, spoke to this am re ivf, clarified earlier NS bolus order which had infused, new order rec'd for NS @ 100/hr, will review tele HR and meds, no addl at this time.
--- NOTE | 2018-04-09 18:37 | PM.CN ---
History of Present Illness Date Patient Seen: 04/09/18 Time Patient Seen: 18:39 Chief complaint: FEVER, COUGH, SHORT OF BREATH Reason for consult: Gallstone Requesting provider: Leah Bowles Narrative: The patient was woman who was admitted because of respiratory issues. There was concern that she had pneumonia and possible congestive heart failure based on increased vascular markings and it elevated BNP. She had incidentally found gallstones. She was not having abdominal pain though she has had pain across her mid/lower abdomen in the past. No nausea or vomiting. No upper abdominal complaints. No history of jaundice. In no pain at all today. [facility] Medical History Peripheral nerve facial nerve paralysis (Acute) Personal history of colonic polyps (Acute) Psoriasis (Acute) Urinary incontinence (Acute) Surgical History History of bilateral tubal ligation (Acute) History of colonoscopy (Acute) Social History household members: family Smoking Status: Current every day smoker Meds Home Medications Medication Instructions Recorded Confirmed Type aspirin [Aspirin Low Dose] 81 mg PO DAILY 04/07/18 04/07/18 History Allergies Allergy/AdvReac Type Severity Reaction Status Date / Time Penicillins [PENICILLINS] Allergy Unknown Rash Verified 09/17/17 13:55 Review of Systems Review of Systems She denies any heart problems or heart attacks in the past. She was short of breath and has had a cold. No black or bloody bowel movements. Up-to-date on her colonoscopy. Last 1 here to ago. The patient denies dysuria but she pees very little of time. No seizures or blackouts. Exam Vital Signs (past 8 hours): - 04/09/18 11:59 04/09/18 12:00 04/09/18 15:00 Temperature 97.7 F Pulse Rate 105 H 118 H 105 H Respiratory Rate 18 18 Blood Pressure 149/75 H Pulse Oximetry 98 97 97 04/09/18 15:46 Temperature 97.9 F Pulse Rate 117 H Respiratory Rate 20 Blood Pressure 140/59 L Pulse Oximetry 95 Fraction of Inspired Oxygen 21 Oxygen Delivery Method Room Air Oxygen Flow Rate 0 Narrative Exam Narrative: Vital signs noted. Her lungs are actually pretty clear. Good respiratory effort. Heart rapid strong sound Ng regular rate and rhythm. No murmur gallop heard. Abdomen is soft mildly protuberant and not tender at this time, even with vigorous shaking. No jaundice. Objective Labs Result Diagrams: 04/09/18 07:00 04/09/18 07:00 Labs: Laboratory Results - last 24 hr 04/08/18 04/08/18 04/08/18 20:08 20:08 20:08 WBC 7.2 RBC 3.87 L Hgb 11.3 L Hct 34.3 L MCV 88.4 MCH 29.1 MCHC 32.9 RDW 14.4 Plt Count 173 Neut % (Auto) 66.6 Lymph % (Auto) 20.0 L [place] % (Auto) 12.8 Eos % (Auto) 0.2 L Baso % (Auto) 0.4 Neut # (Auto) 4800 Lymph # (Auto) 1400 [place] # (Auto) 900 Eos # (Auto) 0 Baso # (Auto) 0 Sodium 136 L Potassium 3.8 Chloride 99 Carbon Dioxide 27 BUN 24 H Creatinine 0.80 Estimated GFR > 60.0 BUN/Creatinine Ratio 30.0 H Glucose 107 Lactate 1.1 Calcium 8.7 Magnesium Total Bilirubin 0.9 AST 34 ALT 37 Alkaline Phosphatase 103 B-Natriuretic Peptide Total Protein 6.4 Albumin 3.8 Globulin 2.6 Albumin/Globulin Ratio 1.5 Procalcitonin Chlamy pneumoniae PCR Adenovirus (PCR) B.parapertussis DNA PCR Coronavirus OC43 (PCR) Coronavirus HKU1 (PCR) Coronavirus 229E (PCR) Coronavirus NL63 (PCR) Human Metapneumovir PCR Influenza Type A (PCR) Influenza Type B (PCR) M. pneumoniae (PCR) Parainfluenza 1 (PCR) Parainfluenza 2 (PCR) Parainfluenza 3 (PCR) Parainfluenza 4 (PCR) RSV (PCR) Entero/Rhino (PCR) 04/08/18 04/08/18 04/08/18 20:08 20:08 21:10 WBC RBC Hgb Hct MCV MCH MCHC RDW Plt Count Neut % (Auto) Lymph % (Auto) [place] % (Auto) Eos % (Auto) Baso % (Auto) Neut # (Auto) Lymph # (Auto) [place] # (Auto) Eos # (Auto) Baso # (Auto) Sodium Potassium Chloride Carbon Dioxide BUN Creatinine Estimated GFR BUN/Creatinine Ratio Glucose Lactate Calcium Magnesium 2.0 Total Bilirubin AST ALT Alkaline Phosphatase B-Natriuretic Peptide 845 H Total Protein Albumin Globulin Albumin/Globulin Ratio Procalcitonin Chlamy pneumoniae PCR Not detected Adenovirus (PCR) Not detected B.parapertussis DNA PCR Not detected Coronavirus OC43 (PCR) Not detected Coronavirus HKU1 (PCR) Not detected Coronavirus 229E (PCR) Not detected Coronavirus NL63 (PCR) Not detected Human Metapneumovir PCR Not detected Influenza Type A (PCR) Not detected Influenza Type B (PCR) Not detected M. pneumoniae (PCR) Not detected Parainfluenza 1 (PCR) Not detected Parainfluenza 2 (PCR) Not detected Parainfluenza 3 (PCR) Not detected Parainfluenza 4 (PCR) Not detected RSV (PCR) Detected H Entero/Rhino (PCR) Not detected 04/09/18 04/09/18 04/09/18 07:00 07:00 07:00 WBC 4.3 L RBC 3.90 L Hgb 11.3 L Hct 34.6 L MCV 88.7 MCH 29.0 MCHC 32.7 RDW 14.5 Plt Count 174 Neut % (Auto) 87.8 H D Lymph % (Auto) 9.8 L [place] % (Auto) 2.2 L Eos % (Auto) 0.0 L Baso % (Auto) 0.2 Neut # (Auto) 3800 Lymph # (Auto) 400 L [place] # (Auto) 100 Eos # (Auto) 0 Baso # (Auto) 0 Sodium 141 Potassium 4.3 Chloride 109 H Carbon Dioxide 24 BUN 25 H Creatinine 0.60 Estimated GFR > 60.0 BUN/Creatinine Ratio 41.7 H Glucose 173 H Lactate Calcium 8.9 Magnesium 2.0 Total Bilirubin AST ALT Alkaline Phosphatase B-Natriuretic Peptide Total Protein Albumin Globulin Albumin/Globulin Ratio Procalcitonin < 0.05 Chlamy pneumoniae PCR Adenovirus (PCR) B.parapertussis DNA PCR Coronavirus OC43 (PCR) Coronavirus HKU1 (PCR) Coronavirus 229E (PCR) Coronavirus NL63 (PCR) Human Metapneumovir PCR Influenza Type A (PCR) Influenza Type B (PCR) M. pneumoniae (PCR) Parainfluenza 1 (PCR) Parainfluenza 2 (PCR) Parainfluenza 3 (PCR) Parainfluenza 4 (PCR) RSV (PCR) Entero/Rhino (PCR) Assessment & Plan Plan: Assessment/Plan Narrative: I believe the gallstones are incidental findings. As such given her possible cardiac but certainly pulmonary disease I would not operate at this time. Since I believe they are asymptomatic I would observe her for now. Should she develop symptoms more typical of gallbladder disease then it would be reasonable to remove her gallbladder.
[2018-04-09] MEDS: METOPROLOL IR 25 MG TABLET PO (20:28)
[2018-04-10] VITALS: BP 137/72; PULSE 95; RESP 20; TEMP 36.4; O2SAT 97
[2018-04-10 04:00] VITALS: BP 140/79; PULSE 104; RESP 18; TEMP 36.2; O2SAT 97
[2018-04-10] MEDS: metroNIDAZOLE 500 MG/100 ML PIGGYBACK 100 MG IV ×2 (05:28→14:12)
[2018-04-10 06:16] LABS: Add Manual Diff / Slide Review NO; Basophils Absolute Auto 0 /uL (0-100); Basophils Percent Auto 0.6 % (0-2); Eosinophils Absolute Auto 0 /uL (0-450); Eosinophils Percent Auto 0.1 % (2-4); Hematocrit 34.8 % (36-46); Hemoglobin 11.5 g/dL (12.0-16.0); Lymphocytes Absolute Auto 2100 /uL (1100-4500); Lymphocytes Percent Auto 31.5 % (25-40); Mean Corpuscular Hemoglobin 29.4 PG (26-34); Mean Corpuscular Volume 88.9 fL (80-100); Monocytes Absolute Auto 800 /uL (0-900); Neutrophils Absolute Auto 3800 /uL (1500-7000); Neutrophils Percent Auto 55.8 % (50-75); Platelet Count 174 X10^3/uL (150-400); Red Blood Cell Count 3.92 X10^6/uL (4.0-5.2); White Blood Cell Count 6.8 X10^3/uL (4.5-11.0)
[2018-04-10 06:28] LABS: Blood Urea Nitrogen 21 mg/dL (7-17); Calcium 9.3 mg/dL (8.4-10.2); Carbon Dioxide 24 mmol/L (22-32); Chloride 110 mmol/L (98-107); Estimated Glomerular Filt Rate > 60.0 mL/min (>60); Glucose 100 mg/dL (80-110); HEMOLYSIS < 15 (0-50); Potassium 3.9 mmol/L (3.4-5.1); Sodium 141 mmol/L (137-145)
[2018-04-10] MEDS: predniSONE 20 MG TABLET 40 MG PO (08:28)
[2018-04-10] MEDS: guaiFENesin ER 600 MG TAB 1200 MG PO ×2 (08:28→20:00)
[2018-04-10] MEDS: ASPIRIN EC 81 MG TABLET PO (08:28)
[2018-04-10] MEDS: ACETAMINOPHEN 325 MG TABLET 650 MG PO (08:30)
[2018-04-10] MEDS: BENZONATATE 100 MG CAPSULE PO ×3 (08:38→21:53)
[2018-04-10 08:52] VITALS: BP 151/82; PULSE 110; RESP 16; TEMP 36.3; O2SAT 95
[2018-04-10] MEDS: HEPARIN 5,000 UNIT/ML VIAL 5000 UNIT SUBCUT ×2 (09:54→20:00)
--- NOTE | 2018-04-10 10:30 | PC.NURSE ---
Addendum entered by Rebecca Lira R.N. 04/10/18 14:38: RESP - incr freq congested, non productive cough, given tessalon and cup tea. Original Note: AM NOTE - pt is alert, up to dangle position for breakfast, states did not sleep well last night to freq coughing, bs dim throughout, ra 96%, congested, occass productive cough, clear sputum, hr tachy this am up 120, after po metoprolol, hr 80's, given 650mg po tylenol for generalized discomfort and tessalon for cough.
[2018-04-10 11:59] VITALS: BP 131/67; PULSE 89; RESP 18; TEMP 36.6; O2SAT 96
--- NOTE | 2018-04-10 14:33 | P.PN_ITS ---
Subjective Date Patient Seen: 04/10/18 Interval history: Patient admitted with RSV pneumonia. She notes improvement in cough. She had 1 episode of vomiting this a.m.. She has been persistently in a sinus tachycardia in the 150s to 160s but heart rate below 100 since started on oral metoprolol this a.m.. Exam Vital Signs (past 8 hours): - 04/10/18 08:52 04/10/18 11:59 Temperature 97.4 F L 97.9 F Pulse Rate 110 H 89 Respiratory Rate 16 18 Blood Pressure 151/82 H 131/67 Pulse Oximetry 95 96 Fraction of Inspired Oxygen 21 Oxygen Delivery Method Room Air Oxygen Flow Rate 0 Narrative Exam Narrative: GENERAL: Patient is in no acute distress HEENT: Chronic left facial droop CHEST: Clear to auscultation bilaterally. CARDIAC: Regular rate and rhythm. ABDOMEN: Nondistended, soft, nontender EXTREMITIES: no edema. NEUROLOGICAL: Alert, pleasant, no focal findings SKIN: Warm, dry, no petechiae, no rash Objective Labs Result Diagrams: 04/10/18 05:53 04/10/18 05:53 Labs: Laboratory Results - last 24 hr 04/10/18 04/10/18 05:53 05:53 WBC 6.8 D RBC 3.92 L Hgb 11.5 L Hct 34.8 L MCV 88.9 MCH 29.4 MCHC 33.0 RDW 15.0 H Plt Count 174 Neut % (Auto) 55.8 D Lymph % (Auto) 31.5 D [place] % (Auto) 12.0 Eos % (Auto) 0.1 L Baso % (Auto) 0.6 Neut # (Auto) 3800 Lymph # (Auto) 2100 [place] # (Auto) 800 Eos # (Auto) 0 Baso # (Auto) 0 Sodium 141 Potassium 3.9 Chloride 110 H Carbon Dioxide 24 BUN 21 H Creatinine 0.50 L Estimated GFR > 60.0 BUN/Creatinine Ratio 42.0 H Glucose 100 Calcium 9.3 Assessment & Plan Plan: Assessment/Plan Narrative: Aura Duran is a 77-year-old female with a past medical history significant for 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 1. Acute RSV community-acquired pneumonia, present on admission. Active. -improving clinical course, improved cough -Patient presented with shortness of breath, chills, cough, orthopnea, chest discomfort, RUQ abdominal pain, and decrease in urine output. . -Viral respiratory PCR positive for RSV. -Blood cultures x2 have no growth to date. -Ordered respiratory therapy evaluation and treatment. -Ordered levalbuterol as needed for shortness of breath to avoid worsening tachycardia. -Ordered Tessalon Perles 100 mg 3 times daily as needed for cough and guaifenesin to help with secretion clearance. 2. Acute COPD exacerbation, present on admission. Active. -Patient has no prior formal diagnosis of COPD. However, she is a lifelong smoker and meets criteria for COPD exacerbation. -Productive cough with purulent sputum and worsening shortness of breath. -Ordered respiratory therapy evaluation and treatment as above. -Not wheezing much. -Ordered Tessalon Perles 100 mg 3 times daily as needed for cough and guaifenesin to help with secretion clearance. -Received methylprednisolone 125 mg IV x1 in the ED. Started on prednisone 40 mg daily x5 days. 3. Ruled out congestive heart failure, present on admission. Active. -Echocardiogram demonstrated preserved left ventricular and right ventricular systolic function. No diastolic dysfunction. Mild valvular disease. Pulmonary hypertension noted with RVSP 46 mmHg likely secondary to COPD. -Started on Bumex 0.5 Q8H for 24 hr. Held on further diuresis as patient appears euvolemic/slightly dry. -Continue strict I&O and daily weights. -Risk Stratify: Lipid panel within normal limits and Hemoglobin A1c normal at 5.3%. -Continue aspirin 81 mg daily per home routine. 4. Acute right upper quadrant pain, present on admission. Resolved. -Incidental finding on CTA chest of a 0.8 cm high attenuation focus in the gallbladder neck may represent a non-calcified gallstone versus a soft tissue mass. -Ultrasound of abdomen demonstrated cholelithiasis with gallstones lodged in the gallbladder neck and gallbladder wall at the upper limits of normal in thickness. Findings concerning for early cholecystitis. -General surgery consultation appreciated. Dr. Mancia indicated gallstones not resulting in any acute disease. Her right upper quadrant pain has resolved. -Levaquin and Flagyl discontinued 5. Elevated troponin, present on admission. Resolved. -Likely secondary to demand ischemia. Does not represent NSTEMI. -Initial troponin elevated at 0.060. trended serial troponin x3 and trending down. No need to continue to trend. -Continue to monitor closely on telemetry. 6. Acute hypomagnesemia, present on admission. Active. -received magnesium sulfate 2 g IV x1. Magnesium deficiency corrected. 7. Sinus tachycardia -persistent tachycardia with heart rate in the 150s to 160s, responded well to starting metoprolol 25 mg twice daily, to continue Disposition: Patient likely to discharge tomorrow, Thursday, upon improvement in shortness of breath and treatment of COPD and improvement of tachycardia.
[2018-04-10 15:53] VITALS: BP 136/68; PULSE 93; RESP 18; TEMP 36.6; O2SAT 98
[2018-04-10 19:19] VITALS: BP 154/86; PULSE 102; RESP 18; TEMP 36.9; O2SAT 95
[2018-04-10] MEDS: METOPROLOL IR 25 MG TABLET PO (20:00)
[2018-04-11] VITALS (9 sets, daily range): BP systolic 127–154; BP diastolic 63–90; PULSE 72–109; RESP 15–20; TEMP 35.6–36.5; O2SAT 92–98
--- NOTE | 2018-04-11 05:19 | PC.NURSE ---
Pt A&OX3. LS: dim. 96%RA. denied pain. denied nausea. passing gas. ambulating to the [facility]. around 0510 while pt was laying in bed comfortable, pt had SVT 180bpm, but quickly returned to her baseline in 90'sbpm. notified LABORATORY ANALYST. call light in reach. bed alarm
[2018-04-11 07:40] LABS: Blood Urea Nitrogen 20 mg/dL (7-17); Carbon Dioxide 23 mmol/L (22-32); Chloride 107 mmol/L (98-107); Estimated Glomerular Filt Rate > 60.0 mL/min (>60); Glucose 97 mg/dL (80-110); HEMOLYSIS 20 (0-50); Magnesium 1.6 mg/dL (1.6-2.3); Potassium 4.1 mmol/L (3.4-5.1); Sodium 138 mmol/L (137-145)
--- NOTE | 2018-04-11 07:43 | PC.NURSE ---
AM NOTE - pt up to dangle position, congested, non productive, dry cough, ra 96%, bs coarse, dim, mild sob w/activity, HR 120 with occassional irreg beat, tele had incr to 120-130 briefly, Dr. Madrid reviewing the tele monitor this am and new order rec'd for 50mg metoprolol.
[2018-04-11] MEDS: guaiFENesin ER 600 MG TAB 1200 MG PO ×2 (07:49→21:27)
[2018-04-11] MEDS: ASPIRIN EC 81 MG TABLET PO (07:50)
[2018-04-11] MEDS: METOPROLOL IR 50 MG TABLET PO ×2 (07:51→21:27)
[2018-04-11] MEDS: predniSONE 20 MG TABLET 40 MG PO (07:51)
[2018-04-11] MEDS: ACETAMINOPHEN 325 MG TABLET 650 MG PO ×2 (07:52→19:10)
[2018-04-11 08:20] LABS: TSH w/ Reflex to FT4 < 0.02 uIU/mL (0.47-4.68)
--- NOTE | 2018-04-11 08:52 | CM.DPC ---
DCP Cont: Plan is for patient to return home when she is stable. She lives in [facility] with family. Is continued to be on cardiac monitoring at this time. P: DCP to continue to follow closely. Will continue to offer any resources that patient may need. Lili Carey RN/Scheduler
[2018-04-11] MEDS: HEPARIN 5,000 UNIT/ML VIAL 5000 UNIT SUBCUT ×2 (09:26→21:27)
[2018-04-11 10:28] LABS: Free T4, Direct Thyroxine 3.14 ng/dL (0.78-2.19)
--- NOTE | 2018-04-11 15:30 | P.PN_ITS ---
Subjective Date Patient Seen: 04/11/18 Interval history: Patient admitted with RSV pneumonia. Her cough is improving. 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 She was started on metoprolol and dose increased to 50 mg twice daily on 04/11/2018. Following this a.m. metoprolol dose her heart rate has remained below 100 in sinus rhythm. There has been no AFib episodes. Also patient has been asymptomatic during SVT episodes. Lab work from 04/11/2018 consistent with thyrotoxicosis with TSH less than 0.02 and an elevated free T4 of 3.14. Exam Vital Signs (past 8 hours): - 04/11/18 08:00 04/11/18 11:14 04/11/18 12:00 Temperature 96.4 F L 96.1 F L Pulse Rate 100 H 87 Respiratory Rate 15 18 Blood Pressure 154/90 H 149/66 H Pulse Oximetry 94 92 96 Fraction of Inspired Oxygen 21 Oxygen Delivery Method Room Air Oxygen Flow Rate 0 Narrative Exam Narrative: Patient is in no acute distress HEENT: Chronic left facial droop Neck: No neck mass, thyroid enlargement or nodule CHEST: Clear to auscultation bilaterally. CARDIAC: Regular rate and rhythm. ABDOMEN: Nondistended, soft, nontender EXTREMITIES: no edema. 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 Diagnosis RSV pneumonia. Also noted to have SVT episodes with thyroid testing consistent with thyrotoxicosis. 1. Acute RSV community-acquired pneumonia, present on admission. Active. -improving clinical course, improved cough -Viral respiratory PCR positive for RSV. -Blood cultures x2 have no growth to date. -continue Tessalon Perles 100 mg 3 times daily as needed for cough and guaifenesin to help with secretion clearance. 2. Acute COPD exacerbation, present on admission. Active. -Patient has no prior formal diagnosis of COPD. However, she is a lifelong smoker and meets criteria for COPD exacerbation. -Productive cough with purulent sputum and worsening shortness of breath. -Not wheezing much but cough improved on prednisone. -Continue prednisone 40 mg daily started on 04/10/2018 to complete 5 day course. 3. Thyrotoxicosis, new diagnosis -patient with 35 lb weight loss in the past 6 months and SVT episodes -labs consistent with thyrotoxicosis, TSH less than 0.02, free T4 3.14 (range 0.78-2.19) -patient and daughter informed of test results and need for further outpatient workup with thyroid scan and uptake and referral to Endocrinology. Testing and referrals will need to be arranged and coordinated by her PCP 4. Paroxysmal supraventricular tachycardia, likely due to thyrotoxicosis -continue metoprolol tartrate 50 mg twice daily -has been asymptomatic with these episodes -pursue workup and treatment of underlying thyroid disease 5. Ruled out congestive heart failure, present on admission. -Echocardiogram demonstrated preserved left ventricular and right ventricular systolic function. No diastolic dysfunction. Mild valvular disease. Pulmonary hypertension noted with RVSP 46 mmHg likely secondary to COPD. -Held on further diuresis as patient appeared euvolemic/slightly dry. -Continue aspirin 81 mg daily per home routine. 6. Acute right upper quadrant pain, present on admission. Resolved. -gallstone noted on CT and ultrasound likely asymptomatic. -General surgery consultation appreciated. Dr. Mancia indicated gallstones not resulting in any acute disease. Her right upper quadrant pain has resolved. 7. Elevated troponin, present on admission. Resolved. -Likely secondary to demand ischemia. Ruled out for acute AK. Disposition: Patient appears ready to likely to discharge tomorrow, Thursday. Follow-up with PCP for lung check as well as further management of thyrotoxicosis.
--- NOTE | 2018-04-11 22:18 | PC.NURSE ---
Evening note: Aura sleeping on & off tonight, said I haven't slept this good in days. Very rare cough, refused tessalon zabrina tonight but did accept 2 Tylenol to help her rest. VS stable, RA oxygen mid 90's. Lungs diminished posteriorly but otherwise clear. Routine mucinex given per schedule. PIV x 2 to RFA saline locked. She is very [place] to right ear, Ox3 and situation, using call button appropriately tonight. She showered tonight, with minimal set-up assist. Gait steady in room, needs only SBA. Fall precautions in place & bed alarm active.
[2018-04-12 03:37] VITALS: BP 140/60; PULSE 65; RESP 18; TEMP 36.1; O2SAT 95
--- NOTE | 2018-04-12 05:18 | PC.NURSE ---
Pt A and O x 4, VSS. She denied pain this shift, only one coughing episode, slept. HR 70- 80's, regular.
[2018-04-12] MEDS: guaiFENesin ER 600 MG TAB 1200 MG PO (07:57)
[2018-04-12] MEDS: ASPIRIN EC 81 MG TABLET PO (07:57)
[2018-04-12] MEDS: METOPROLOL IR 50 MG TABLET PO (07:57)
[2018-04-12] MEDS: HEPARIN 5,000 UNIT/ML VIAL 5000 UNIT SUBCUT (07:58)
[2018-04-12] MEDS: predniSONE 20 MG TABLET 40 MG PO (07:59)
[2018-04-12] MEDS: BENZONATATE 100 MG CAPSULE PO (07:59)
[2018-04-12 08:00] VITALS: BP 145/72; PULSE 81; RESP 18; TEMP 36.5; O2SAT 95
--- NOTE | 2018-04-12 08:12 | PC.NURSE ---
AM Shift Pt is PAKO, A/o x3, cooperative with care. Htn, HR NSR 80's. Reports SOB much improved since admission, denies cough overnight, occasional dry cough this AM when up to chair. Flakita zabrina given. Pt feels like d/c today will go well to home. Call light in reach. .
[2018-04-12 12:00] VITALS: BP 135/62; PULSE 74; RESP 18; TEMP 36.7; O2SAT 97
[2018-04-12 16:01] VITALS: BP 120/80; PULSE 73; RESP 18; TEMP 36.9; O2SAT 96
[2018-04-12 16:16] VITALS: O2SAT 97
--- NOTE | 2018-04-12 17:43 | PM.DS.1 ---
History of Present Illness Date Patient Seen: 04/12/18 Chief complaint: FEVER, COUGH, SHORT OF BREATH Narrative: The patient is a 77-year-old female who presented to the ED on 04/07/2018 at 1947 out of concern for dyspnea. Symptoms initially noted 2 days ago, progressively worsening. Associated symptoms include chills, cough, orthopnea, chest discomfort, RUQ abdominal pain, and decrease in urine output. Symptoms are worsened with exertion and relieved with rest. Denies recent acute illness, falls, unilateral lower extremity pain or edema, palpitations, weakness, fatigue, or signs of blood loss. [place] Recently in contact with multiple people with URI symptoms. No prior known history of cardiac, pulmonary, renal disease. No history of PE or DVT. Discharge Providers Date of admission: 04/07/18 23:02 Primary care physician: Raisa Martins MD Consults: 04/07/18 19:56 Consult to Respiratory Therapy Evaluate & Treat Comment: Physician Instructions: Evaluate and treat 04/08/18 06:00 Consult to Discharge Planning Routine Comment: d/c planning 04/08/18 20:07 Consult to General Surgery Routine Comment: Consulting Provider: Jonny Mancia Reason for consultation: cholecystitis Has provider been notified: No Discharge provider: Sarah Ham MD Discharge Date: 04/12/18 Summary Discharge Diagnosis: RSV pneumonia, present on admission, acute COPD exacerbation, present on admission, acute Thyrotoxicosis, present on admission, acute Paroxysmal supraventricular tachycardia, acute, resolved Type 2 diabetes, chronic Hypertension, chronic Right upper quadrant pain, asymptomatic gall gallstone, present on admission Status at Discharge Functional status at discharge: independent ambulation Overall status at discharge: patient is back to baseline Time Spent with Patient Less than 30 minutes Exam Vital Signs (past 8 hours): - 04/12/18 12:00 04/12/18 16:01 04/12/18 16:16 Temperature 98.0 F 98.4 F Pulse Rate 74 73 Respiratory Rate 18 18 Blood Pressure 135/62 120/80 Pulse Oximetry 97 96 97 Fraction of Inspired Oxygen 21 Oxygen Delivery Method Room Air Oxygen Flow Rate 0 Narrative Exam Narrative: Pleasant E dental is female in No acute distress Lungs: Decreased breath sounds but clear Cardiac exam: Regular rate and rhythm normal S1 and S2 with a 2/6 systolic ejection murmur Abdomen: Soft nontender nondistended Extremities: No edema Objective Labs Result Diagrams: 04/10/18 05:53 04/11/18 07:18 Discharge Plan Discharge Plan Patient Disposition: Home Discharge comment: Follow up with PCP tomorrow. Patient needs an urgent referral to Endocrinology for evaluation of hyperthyroidism Discharge Med Rec/Prescriptions Prescriptions: New prednisone 20 mg Tablet 40 mg PO DAILY 3 Days RF: 0 metoprolol tartrate 50 mg Tablet 50 mg PO BID Qty: 60 RF: 0 guaifenesin 600 mg Tablet Extended Release 12hr 1,200 mg PO BID Qty: 10 RF: 0 Continue aspirin [Aspirin Low Dose] 81 mg Tablet,Delayed Release (Dr/Ec) 81 mg PO DAILY RF: 0 Follow up/Referrals: Raisa Martins MD [Primary Care Provider] - Provider Discharge Instructions Diet: Diet as Tolerated and Regular Activity: aS TOLERATED Visit Report/Discharge Packet Instructions: Smoking Cessation for Older Adults: It's Not Too Late!, Respiratory Syncytial Virus, DI for Heart Failure, DI for Chronic Obstructive Pulmonary Disease, DI for Respiratory Syncytial Virus -- Adults Visit Report Forms: Congestive Heart Failure, Stroke Signs & Symptoms Discharge Data Primary Care Provider: Raisa Martins Attending Provider: Rod Velasco Admit Date/Time: 04/07/18 23:02
--- NOTE | 2018-04-12 17:46 | PM.DS.1 ---
History of Present Illness Chief complaint: FEVER, COUGH, SHORT OF BREATH Narrative: The patient is a 77-year-old female who presented to the ED on 04/07/2018 at 1947 out of concern for dyspnea. Symptoms initially noted 2 days ago, progressively worsening. Associated symptoms include chills, cough, orthopnea, chest discomfort, RUQ abdominal pain, and decrease in urine output. Symptoms are worsened with exertion and relieved with rest. Denies recent acute illness, falls, unilateral lower extremity pain or edema, palpitations, weakness, fatigue, or signs of blood loss. Patient [place]. Recently in contact with multiple people with URI symptoms. No prior known history of cardiac, pulmonary, renal disease. No history of PE or DVT. Discharge Providers Date of admission: 04/07/18 23:02 Primary care physician: Raisa Martins MD Consults: 04/07/18 19:56 Consult to Respiratory Therapy Evaluate & Treat Comment: Physician Instructions: Evaluate and treat 04/08/18 06:00 Consult to Discharge Planning Routine Comment: d/c planning 04/08/18 20:07 Consult to General Surgery Routine Comment: Consulting Provider: Jonny Mancia Reason for consultation: cholecystitis Has provider been notified: No Discharge provider: Sarah Ham MD Discharge Date: 04/12/18 Exam Vital Signs (past 8 hours): - 04/12/18 12:00 04/12/18 16:01 04/12/18 16:16 Temperature 98.0 F 98.4 F Pulse Rate 74 73 Respiratory Rate 18 18 Blood Pressure 135/62 120/80 Pulse Oximetry 97 96 97 Fraction of Inspired Oxygen 21 Oxygen Delivery Method Room Air Oxygen Flow Rate 0 Objective Labs Result Diagrams: 04/10/18 05:53 04/11/18 07:18 Discharge Plan Discharge Plan Patient Disposition: Home Discharge comment: Follow up with PCP tomorrow. Patient needs an urgent referral to Endocrinology for evaluation of hyperthyroidism Discharge Med Rec/Prescriptions Prescriptions: New prednisone 20 mg Tablet 40 mg PO DAILY 3 Days RF: 0 metoprolol tartrate 50 mg Tablet 50 mg PO BID Qty: 60 RF: 0 guaifenesin 600 mg Tablet Extended Release 12hr 1,200 mg PO BID Qty: 10 RF: 0 Continue aspirin [Aspirin Low Dose] 81 mg Tablet,Delayed Release (Dr/Ec) 81 mg PO DAILY RF: 0 Follow up/Referrals: Raisa Martins MD [Primary Care Provider] - Provider Discharge Instructions Diet: Diet as Tolerated and Regular Activity: aS TOLERATED Visit Report/Discharge Packet Instructions: Smoking Cessation for Older Adults: It's Not Too Late!, Respiratory Syncytial Virus, DI for Heart Failure, DI for Chronic Obstructive Pulmonary Disease, DI for Respiratory Syncytial Virus -- Adults Visit Report Forms: Congestive Heart Failure, Stroke Signs & Symptoms Discharge Data Primary Care Provider: Raisa Martins Attending Provider: Rod Velasco Admolamide Date/Time: 04/07/18 23:02
--- NOTE | 2018-04-12 17:49 | P.DS_ITS ---
History of Present Illness Chief complaint: FEVER, COUGH, SHORT OF BREATH Narrative: The patient is a 77-year-old female who presented to the ED on 2018 at 1947 out of concern for dyspnea. Symptoms initially noted 2 days ago, progressively worsening. Associated symptoms include chills, cough, orthopnea, chest discomfort, RUQ abdominal pain, and decrease in urine output. Symptoms are worsened with exertion and relieved with rest. Denies recent acute illness , falls, unilateral lower extremity pain or edema, palpitations, weakness, fatigue, or signs of blood loss. Patient [place]. Recently in contact with multiple people with URI symptoms. No prior known history of cardiac, pulmonary, renal disease. No history of PE or DVT. Discharge Providers Date of admission: 04/07/18 23:02 Primary care physician: Raisa Martins MD Consults: 04/07/18 19:56 Consult to Respiratory Therapy Evaluate & Treat Comment: Physician Instructions: Evaluate and treat 04/08/18 06:00 Consult to Discharge Planning Routine Comment: d/c planning 04/08/18 20:07 Consult to General Surgery Routine Comment: Consulting Provider: Jonny Mancia Reason for consultation: cholecystitis Has provider been notified: No Discharge provider: Sarah Ham MD Discharge Date: 04/12/18 Exam Vital Signs (past 8 hours): - 04/12/18 12:00 04/12/18 16:01 04/12/18 16:16 Temperature 98.0 F 98.4 F Pulse Rate 74 73 Respiratory Rate 18 18 Blood Pressure 135/62 120/80 Pulse Oximetry 97 96 97 Fraction of Inspired Oxygen 21 Oxygen Delivery Method Room Air Oxygen Flow Rate 0 Objective Labs Result Diagrams: 04/10/18 05:53 04/11/18 07:18 Discharge Plan Discharge Plan Patient Disposition: Home Discharge comment: Follow up with PCP tomorrow. Patient needs an urgent referral to Endocrinology for evaluation of hyperthyroidism Discharge Med Rec/Prescriptions Prescriptions: New prednisone 20 mg Tablet 40 mg PO DAILY 3 Days RF: 0 metoprolol tartrate 50 mg Tablet 50 mg PO BID Qty: 60 RF: 0 guaifenesin 600 mg Tablet Extended Release 12hr 1,200 mg PO BID Qty: 10 RF: 0 Continue aspirin [Aspirin Low Dose] 81 mg Tablet,Delayed Release (Dr/Ec) 81 mg PO DAILY RF: 0 Follow up/Referrals: Raisa Martins MD [Primary Care Provider] - Provider Discharge Instructions Diet: Diet as Tolerated and Regular Activity: aS TOLERATED Visit Report/Discharge Packet Instructions: Smoking Cessation for Older Adults: It's Not Too Late!, Respiratory Syncytial Virus, DI for Heart Failure, DI for Chronic Obstructive Pulmonary Disease, DI for Respiratory Syncytial Virus -- Adults Visit Report Forms: Congestive Heart Failure, Stroke Signs & Symptoms Discharge Data Primary Care Provider: Raisa Martins Attending Provider: Rod Velasco Admolamide Date/Time: 04/07/18 23:02
== END 2018-04-12 17:40 | disposition home or self-care (01) | DRG 190 ==
LOC: ED 23:00 → AC 23:03
PROVIDERS: Internal Medicine; Admitting Provider Nurse Practitioner Gerontology; Emergency Provider Emergency Medicine; Family Provider Family Medicine; PCP Family Medicine; Visit Provider Nurse Practitioner Gerontology
DX: J44.1 Chronic obstructive pulmonary disease with (acute) exacerbation (principal); J12.1 Respiratory syncytial virus pneumonia; I24.8 Other forms of acute ischemic heart disease; I47.1 Supraventricular tachycardia; H95.31 Accidental puncture and laceration of the ear and mastoid process during a procedure on the ear and mastoid process; R10.11 Right upper quadrant pain; E83.42 Hypomagnesemia; E05.90 Thyrotoxicosis, unspecified without thyrotoxic crisis or storm; R63.4 Abnormal weight loss; Z68.24 Body mass index [BMI] 24.0-24.9, adult; R32 Unspecified urinary incontinence
CPT/HCPCS: 36415; 36591; 71045; 71275; 76700; 80048; 80053; 80061; 81001; 81003; 82550; 82553; 83036; 83605; 83735; 83880; 84145; 84439; 84443; 84484; 85025; 85610; 85730; 87040; 87633; 93005; 93010; 93306; 94640; 94760; 94762; 96361; 96374; 96375; 99232; 99285; J1644; J1940; J1956; J2930; J7613; Q9967